=== PATIENT | female | born 1975 | race Caucasian/White ===

== ENCOUNTER 2016-09-18 13:53 | Inpatient (IN) | payer BC, MEDICAID ==
[2016-09-18] VITALS (8 sets, daily range): BP systolic 117–143; BP diastolic 60–89; PULSE 78–117; RESP 16–32; TEMP 98.3–98.6; O2SAT 96–99
[~2016-09-18] VITALS: Ht 160 cm; Wt 56.3 kg
[~2016-09-18 13:53] MED LIST: AMBI10TA PO; CLON1TAB PO; FIORINAL2 PO; FOLI1 PO; MAGN400T PO; NEUR600T PO; PROP10TA26 PO; SERT100 PO; SUMA20I NASAL; TAB-TAB PO; ZOFR4TAB3 SL
[2016-09-18] MEDS ORDERED: SODIUM CHLOR 0.9% 1000 ML INJ 1,000 ML IV ONE ×2 (14:30→18:00)
[2016-09-18] MEDS ORDERED: SODIUM CHLORIDE 0.9% FLUSH 5 ML FLUSH IVF PRN (14:30)
--- NOTE | 2016-09-18 14:32 | PD ---
HPI Chief Complaint: OD/ Ingestion Time Seen by Provider: 14:13 Travel History International Travel<30 days: No Contact w/Intl Traveler<30days: No Traveled to known affect area: No History of Present Illness HPI The patient was seen and examined in the presence of the nurse. This patient was dropped off at the emergency room by family members. Going to try to track him down for further history. This patient cannot provide any history or review of systems. She reportedly took an intentional overdose. Reportedly drank rubbing alcohol and took benzodiazepines. Timing of the overdose is unclear. No injury or trauma. PFSH Past Medical History Bipolar Disorder: Yes Anxiety: Yes Cerebrovascular Accident: Yes GERD: Yes Headaches: Yes Kidney Stones: Yes Myocardial Infarction: Yes Seizures: Yes Past Surgical History Appendectomy: Yes Social History Alcohol Use: Yes Tobacco Use: No Substance Use: No Allergies-Medications (Allergen,Severity, Reaction): Coded Allergies: UNOBTAINABLE (Unverified , 09/18/16) Reported Meds & Prescriptions Reported Meds & Active Scripts Active Active Prescriptions or Reported Medications Unobtainable Review of Systems ROS Limitations: Clinical Condition, Intoxication, Altered Mental Status, Poor Historian Physical Exam Narrative GENERAL: Disheveled, obtunded patient . SKIN: Warm and dry. HEAD: Atraumatic. Normocephalic. EYES: Pupils equal and round. No scleral icterus. No injection or drainage. ENT: No nasal bleeding or discharge. Mucous membranes pink and moist. NECK: Trachea midline. No JVD. CARDIOVASCULAR: Regular rate and rhythm. No murmur appreciated. RESPIRATORY: No accessory muscle use. Clear to auscultation. Breath sounds equal bilaterally. GASTROINTESTINAL: Abdomen soft, non-tender, nondistended. Hepatic and splenic margins not palpable. MUSCULOSKELETAL: No obvious deformities. No clubbing. No cyanosis. No edema. NEUROLOGICAL: Disoriented and confused. Positive gag reflex. Seems to be controlling her airway. He pulls are round and reactive. Impossible to accurately gauge motor strength or sensation. She does not participate in the exam. She is nonverbal at this point. PSYCHIATRIC: Impossible to assess mood and affect; insight and judgment poor. Data Data Last Documented VS Vital Signs Date Time Temp Pulse Resp B/P Pulse Ox O2 Delivery O2 Flow Rate FiO2 09/18/16 15:13 111 17 133/76 96 Nasal Cannula 2 09/18/16 13:54 98.3 Orders Electrocardiogram (1/29/17 ) Alcohol (Ethanol) (09/18/16 14:21) Complete Blood Count With Diff (09/18/16 14:21) Comprehensive Metabolic Panel (09/18/16 14:21) Drug Screen, Random Urine (09/18/16 14:21) Salicylates (Aspirin) (09/18/16 14:21) Tylenol (Acetaminophen) (09/18/16 14:21) Arterial Blood Gas (Abg) (09/18/16 14:21) Iv Access Insert/Monitor (09/18/16 14:21) Ecg Monitoring (09/18/16 14:21) Oximetry (09/18/16 14:21) Urinary Catheter Insert/Apply (09/18/16 14:21) Sodium Chloride 0.9% Flush (Ns Flush) (09/18/16 14:30) Call Poison Control (09/18/16 14:21) Restraints Non-Violent CHRISTIN.Q3H (09/18/16 14:21) Sodium Chlor 0.9% 1000 Ml Inj (Ns 1000 M (09/18/16 14:30) Prothrombin Time / Inr (Pt) (09/18/16 14:36) Act Partial Throm Time (Ptt) (09/18/16 14:36) Lactic Acid (09/18/16 14:36) Beta Hydroxybutyrate (Acetone) (09/18/16 14:36) Osmolality,Serum (09/18/16 14:36) Lactic Acid (09/18/16 16:35) Admit Order (Ed Use Only) (09/18/16 16:43) Labs Laboratory Tests Test 09/18/16 09/18/16 14:44 14:46 Blood Gas Puncture Site RT RADIAL Blood Gas Patient Temperature 98.6 Blood Gas HCO3 25 mmol/L Blood Gas Base Excess 2.7 mmol/L Blood Gas Oxygen Saturation 92 % Arterial Blood pH 7.53 Arterial Blood Partial 30 mmHg Pressure CO2 Arterial Blood Partial 165 mmHG Pressure O2 Arterial Blood Oxygen Content 20.4 Vol % Arterial Blood 4.5 % Carboxyhemoglobin Arterial Blood Methemoglobin 2.2 % Blood Gas Hemoglobin 15.6 G/DL Oxygen Delivery Device NASAL CANNULA Blood Gas Liter Flow 2 L/M White Blood Count 17.2 TH/MM3 Red Blood Count 5.14 MIL/MM3 Hemoglobin 15.3 GM/DL Hematocrit 44.5 % Mean Corpuscular Volume 86.6 FL Mean Corpuscular Hemoglobin 29.9 PG Mean Corpuscular Hemoglobin 34.5 % Concent Red Cell Distribution Width 12.8 % Platelet Count 346 TH/MM3 Mean Platelet Volume 8.3 FL Neutrophils (%) (Auto) 69.1 % Lymphocytes (%) (Auto) 24.0 % Monocytes (%) (Auto) 5.3 % Eosinophils (%) (Auto) 0.8 % Basophils (%) (Auto) 0.8 % Neutrophils # (Auto) 11.9 TH/MM3 Lymphocytes # (Auto) 4.1 TH/MM3 Monocytes # (Auto) 0.9 TH/MM3 Eosinophils # (Auto) 0.1 TH/MM3 Basophils # (Auto) 0.1 TH/MM3 CBC Comment DIFF FINAL Differential Comment Prothrombin Time 13.3 SEC Prothromb Time International 1.2 RATIO Ratio Activated Partial 25.5 SEC Thromboplast Time Sodium Level 145 MEQ/L Potassium Level 2.7 MEQ/L Chloride Level 103 MEQ/L Carbon Dioxide Level 26.8 MEQ/L Anion Gap 15 MEQ/L Blood Urea Nitrogen 18 MG/DL Creatinine 0.80 MG/DL Estimat Glomerular Filtration 62 ML/MIN Rate Random Glucose 145 MG/DL Serum Osmolality 352 MOSM/KG Lactic Acid Level 7.1 mmol/L Calcium Level 7.9 MG/DL Total Bilirubin 0.4 MG/DL Aspartate Amino Transf 94 U/L (AST/SGOT) Alanine Aminotransferase 118 U/L (ALT/SGPT) Alkaline Phosphatase 100 U/L Total Protein 6.4 GM/DL Albumin 3.7 GM/DL Salicylates Level 2.7 MG/DL Urine Opiates Screen NEG Acetaminophen Level LESS THAN 2.0 MCG/ML Urine Barbiturates Screen POS Urine Amphetamines Screen NEG Urine Benzodiazepines Screen NEG Urine Cocaine Screen NEG Urine Cannabinoids Screen NEG Ethyl Alcohol Level 52 MG/DL B-Hydroxybutyrate 0.05 MMOL/L MDM Medical Decision Making Medical Screen Exam Complete: Yes Emergency Medical Condition: Yes Medical Record Reviewed: Yes Differential Diagnosis Overdose, cardiac arrhythmia, electrolyte abnormality Narrative Course I have reviewed the patient's electronic medical record. Patient came in under Garima Galeas but we have obtained her real name. I reviewed her last visit here which was approximately 9 months ago and she was diagnosed with drug-seeking behavior. Patient arrives looking critically ill. She is obtunded and tachycardic after intentional overdose Nurses calling poison control while I have initiated large scale workup IV placed 2 I gave her 1 L normal saline IV CBC shows leukocytosis of 17,000 Metabolic profile shows hypokalemia of 2.7. Sodium is normal and creatinine is normal. She has elevated serum osmolality of 352. Beta hydroxybutyrate is normal. LFTs are slightly elevated ABG shows pH of 7.53 with normal bicarbonate and decreased CO2 Toxicology screen is positive for barbiturate Alcohol level is 52 Tylenol is negative Aspirin is 2.7 which is low Extended cardiac monitoring reveals sinus tachycardia at 120 I reviewed her EKG which reveals sinus tachycardia Multiple reassessments have been done. Vazquez catheter placed and she is put out a liter of yellow urine She is still obtunded but I don't feel she requires airway placement I discussed the case in detail with the neurophysiology tech on-call. We reviewed all of the labs and vitals and situation and I receive the recommendations. They did suggest intensive care monitoring given the mental status alteration as well as significant monitoring that will be needed. Repeat labs will be needed around 8 PM including alcohol and metabolic studies. A lot of this is supportive care as there is no specific antidote I placed a call to the cnc mechanic to discuss the case Critical Care Narrative Aggregate critical care time was 82 minutes. Time to perform other separately billable procedures was not included in the critical care time. My time did not include minutes spent treating any other patients simultaneously or on activities that did not directly contribute to the patient's treatment. The services I provided to this patient were to treat and/or prevent clinically significant deterioration that could result in: Cardiopulmonary arrest, cardiac arrhythmia, hypoxic brain injury I provided critical care services requiring my management, as noted below: Chart data review, documentation time, medication orders and management, vital sign assessments/reviewing monitor data, ordering and reviewing lab tests, ordering and interpreting/reviewing x-rays and diagnostic studies, care of the patient and discussion of the patient with the admitting physicians. Diagnosis Primary Impression: Acute metabolic encephalopathy Additional Impression: Toxic effect of rubbing alcohol Qualified Code: T51.2X2A - Toxic effect of rubbing alcohol, intentional self- harm, initial encounter Admitting Information Admitting Physician Requests: Admit Scripts Unable to Obtain Active Prescriptions or Reported Meds Isreal Rios MD Sep 18, 2016 14:32
[2016-09-18 14:55] LABS: BLOOD GAS BASE EXCESS 2.7 mmol/L (-2-2); BLOOD GAS CARBOXYHEMOGLOBIN 4.5 % (0-4); BLOOD GAS HCO3 25 mmol/L (22-26); BLOOD GAS METHEMOGLOBIN 2.2 % (0-2); BLOOD GAS O2 HGB SATURATION 92 % (90-100); BLOOD GAS OXYGEN CONTENT 20.4 Vol % (12.0-20.0); BLOOD GAS PCO2 30 mmHg (38-42); BLOOD GAS PO2 165 mmHG (61-120); BLOOD GAS TOTAL HGB 15.6 G/DL (12.0-16.0); CRITICAL VALUE YES; DRAW SITE RT RADIAL; LITER FLOW 2 L/M; NUMBER OF ARTERIAL PUNCTURES 1; OXYGEN DEVICE NASAL CANNULA; STAT YES; TEMP CORR TO 98.6
[2016-09-18 15:12] LABS: AUTOMATED NEUTROPHIL # 11.9 TH/MM3 (1.8-7.7); BASOPHIL # 0.1 TH/MM3 (0-0.2); BASOPHIL % 0.8 % (0.0-2.0); EOSINOPHIL # 0.1 TH/MM3 (0-0.4); EOSINOPHIL % 0.8 % (0.0-4.0); HEMATOCRIT 44.5 % (35.0-46.0); HEMO FLAGS DIFF FINAL; LYMPHOCYTE # 4.1 TH/MM3 (1.0-4.8); MEAN CELL VOLUME 86.6 FL (80.0-100.0); MEAN CORPUSCULAR HEMOGLOBIN 29.9 PG (27.0-34.0); MEAN CORPUSCULAR HGB CONC 34.5 % (32.0-36.0); MONO % 5.3 % (0.0-8.0); NEUT % 69.1 % (16.0-70.0); PLATELET COUNT 346 TH/MM3 (150-450); RED BLOOD COUNT 5.14 MIL/MM3 (4.00-5.30); RED CELL DISTRIBUTION WIDTH 12.8 % (11.6-17.2); WHITE BLOOD COUNT 17.2 TH/MM3 (4.0-11.0)
[2016-09-18 15:18] LABS: AMPHETAMINE, URINE NEG (NEG); BARBITURATES, URINE POS (NEG); COCAINE, URINE NEG (NEG)
[2016-09-18 15:21] LABS: APTT (PATIENT) 25.5 SEC (24.3-30.1); INTERNATIONAL NORMALIZED RATIO 1.2 RATIO; PROTHROMBIN TIME - PATIENT 13.3 SEC (9.8-11.6)
[2016-09-18 15:37] LABS: ALT (GPT) 118 U/L (10-53); ANION GAP 15 MEQ/L (5-15); AST (GOT) 94 U/L (15-37); BICARBONATE 26.8 MEQ/L (21.0-32.0); BLOOD UREA NITROGEN 18 MG/DL (7-18); CHLORIDE 103 MEQ/L (98-107); GLOMERULAR FILTRATION RATE 62 ML/MIN (>89); SODIUM (NA) 145 MEQ/L (136-145)
[2016-09-18 15:41] LABS: POTASSIUM 2.7 MEQ/L (3.5-5.1)
[2016-09-18 15:42] LABS: ACETAMINOPHEN LESS THAN 2.0 MCG/ML (10.0-30.0); ALKALINE PHOSPHATASE 100 U/L (45-117); TOTAL BILIRUBIN ADULT 0.4 MG/DL (0.2-1.0)
[2016-09-18] MEDS ORDERED: SODIUM PHOSPHATE INJ 30 MMOL in SODIUM CHLOR 0.9% 250 ML INJ 240 ML IV PRN (17:15)
[2016-09-18] MEDS ORDERED: POTASSIUM CL 40 MEQ/30 ML LIQ UDC PO/TUBE PRN ×2 (17:15)
[2016-09-18] MEDS ORDERED: MAGNESIUM SULFATE INJ 4 GM in SODIUM CHLORIDE 0.9% INJ 92 ML IV PRN (17:15)
[2016-09-18] MEDS ORDERED: POTASSIUM CHLOR 20 MEQ PREMIX 100 ML IV PRN (17:15)
[2016-09-18] MEDS ORDERED: POTASSIUM PHOSPHATE MONOBASIC 500 MG TAB PO PRN (17:15)
[2016-09-18] MEDS ORDERED: POTASSIUM PHOSPHATE MONOBASIC 500 MG TAB PO/TUBE PRN (17:15)
[2016-09-18] MEDS ORDERED: MAGNESIUM SULFATE INJ 2 GM in SODIUM CHLORIDE 0.9% INJ 96 ML IV PRN (17:15)
[2016-09-18] MEDS ORDERED: MAGNESIUM OXIDE 400 MG TAB PO PRN (17:15)
[2016-09-18] MEDS ORDERED: POTASSIUM PHOSPHATE INJ 30 MMOL in SODIUM CHLOR 0.9% 250 ML INJ 250 ML IV PRN (17:15)
[2016-09-18] MEDS ORDERED: POTASSIUM CHLOR 40 MEQ PREMIX 100 ML IV PRN ×2 (17:15)
--- NOTE | 2016-09-18 17:23 | HHI.HP ---
HPI Service Critical Care Medicine Primary Care Physician Unknown Admission Diagnosis intentional OD,BA,metabolic encephalopathy Diagnosis: Travel History International Travel<30 Days: No Contact w/Intl Traveler <30 Da: No Traveled to Known Affected Are: No History of Present Illness 40-year-old female who came in under the name Garima Guan whose name is reportedly Alis Stewart. She has PMH of migraine headaches, alcohol abuse, alcoholic hepatitis. She presents to [facility] [place] after her states she has had decreased level of consciousness for 5 days after she has been self- medicating with Fiorcet, klonopin, suboxone, EtOH and isopropyl alcohol. She reportedly had pain after a tooth was pulled last or MonSeptember 13 and she was trying to mask the pain. She has been drinking a fifth of vodka daily for 3 days. Last night and today she was drinking unknown quantity of isopropyl alcohol (less than 1 bottle). No ingestion of other toxic alcohols per report. Anion gap is 15 with lactic acid of 7.1. Osmolar gap is 33 with EtOH level 52. UDS positive for barbituates c/w known ingestion of fiorcet. APAP /salicylate negative. She was placed under [place] Act per ED physician. Case was discussed by rn maternal child who recommended admission to ICU for airway monitoring. She is complaining of dry mouth and epigastric discomfort. No nausea. Fell and hit her lip on the dresser couple days ago. Past Family Social History Allergies: Coded Allergies: UNOBTAINABLE (Unverified , 09/18/16) Past Medical History Migraine headaches Polysubstance abuse Tobacco abuse alcohol abuse Past Surgical History Appendectomy Breast augmentation Reported Medications Klonopin 2 mg by mouth 3 times a day Suboxone Fioricet Family History No significant family medical history Social History She has a history of alcohol dependence. Reportedly her last alcohol use was in May 2016 prior to her most recent binge drinking. She smokes a pack of cigarettes per day. She abuses benzodiazepines, opiates Reported no history of IV drug use She is She is unemployed Physical Exam Vital Signs Vital Signs Date Time Temp Pulse Resp B/P Pulse Ox O2 Delivery O2 Flow Rate FiO2 09/18/16 17:00 117 16 137/83 98 Room Air 09/18/16 15:13 111 17 133/76 96 Nasal Cannula 2 09/18/16 14:55 117 28 123/79 99 Nasal Cannula 2 09/18/16 13:54 98.3 78 32 140/89 97 Physical Exam GENERAL: Well-developed disheveled female patient who is laying in ED [facility] in 4. soft restraints. SKIN: Warm and dry. HEAD: Atraumatic. Normocephalic. EYES: Pupils are 3 mm reactive bilaterally. No scleral icterus. No injection or drainage. ENT: No nasal bleeding or discharge. Mucous membranes very dry. There is thrush in the posterior oropharynx. Old appearing healing abrasion left upper lip. NECK: Trachea midline. No JVD. CARDIOVASCULAR: Tachycardic, regular, sinus tach 110s on the monitor.. No murmurs rubs or gallops. RESPIRATORY: No accessory muscle use. Clear to auscultation. On room air GASTROINTESTINAL: Abdomen soft, +epigastric tenderness without rebound or guarding. Bowel sounds present. : bleeding at urethral meatus where she pulled out swan MUSCULOSKELETAL: Extremities without clubbing, cyanosis, or edema. No obvious deformities. NEUROLOGICAL: Awake answers questions and is oriented to hospital, self, year. Moves all extremities spontaneously and to commands. She is tremulous Laboratory Laboratory Tests Test 09/18/16 09/18/16 09/18/16 14:44 14:46 16:40 Blood Gas Puncture Site RT RADIAL Blood Gas Patient Temperature 98.6 Blood Gas HCO3 25 Blood Gas Base Excess 2.7 Blood Gas Oxygen Saturation 92 Arterial Blood pH 7.53 Arterial Blood Partial 30 Pressure CO2 Arterial Blood Partial 165 Pressure O2 Arterial Blood Oxygen Content 20.4 Arterial Blood 4.5 Carboxyhemoglobin Arterial Blood Methemoglobin 2.2 Blood Gas Hemoglobin 15.6 Oxygen Delivery Device NASAL CANNULA Blood Gas Liter Flow 2 White Blood Count 17.2 Red Blood Count 5.14 Hemoglobin 15.3 Hematocrit 44.5 Mean Corpuscular Volume 86.6 Mean Corpuscular Hemoglobin 29.9 Mean Corpuscular Hemoglobin 34.5 Concent Red Cell Distribution Width 12.8 Platelet Count 346 Mean Platelet Volume 8.3 Neutrophils (%) (Auto) 69.1 Lymphocytes (%) (Auto) 24.0 Monocytes (%) (Auto) 5.3 Eosinophils (%) (Auto) 0.8 Basophils (%) (Auto) 0.8 Neutrophils # (Auto) 11.9 Lymphocytes # (Auto) 4.1 Monocytes # (Auto) 0.9 Eosinophils # (Auto) 0.1 Basophils # (Auto) 0.1 CBC Comment DIFF FINAL Differential Comment Prothrombin Time 13.3 Prothromb Time International 1.2 Ratio Activated Partial 25.5 Thromboplast Time Sodium Level 145 Potassium Level 2.7 Chloride Level 103 Carbon Dioxide Level 26.8 Anion Gap 15 Blood Urea Nitrogen 18 Creatinine 0.80 Estimat Glomerular Filtration 62 Rate Random Glucose 145 Serum Osmolality 352 Lactic Acid Level 7.1 6.7 Calcium Level 7.9 Total Bilirubin 0.4 Aspartate Amino Transf 94 (AST/SGOT) Alanine Aminotransferase 118 (ALT/SGPT) Alkaline Phosphatase 100 Total Protein 6.4 Albumin 3.7 Salicylates Level 2.7 Urine Opiates Screen NEG Acetaminophen Level LESS THAN 2.0 Urine Barbiturates Screen POS Urine Amphetamines Screen NEG Urine Benzodiazepines Screen NEG Urine Cocaine Screen NEG Urine Cannabinoids Screen NEG Ethyl Alcohol Level 52 B-Hydroxybutyrate 0.05 Result Diagram: 09/18/16 1446 09/18/166 Assessment and Plan Problem List: (1) Toxic effect of rubbing alcohol ICD Code: T51.2X1A Status: Acute (2) Acute metabolic encephalopathy ICD Code: G93.41 Status: Acute (3) Hypokalemia ICD Code: E87.6 Status: Acute (4) Thrush ICD Code: B37.0 Status: Acute (5) Anxiety ICD Code: F41.9 Status: Acute (6) ETOH abuse ICD Code: F10.10 Status: Chronic (7) Transaminitis ICD Code: R74.0 Status: Acute (8) Lactic acidemia ICD Code: E87.2 Status: Acute (9) Polysubstance abuse ICD Code: F19.10 Status: Chronic (10) Tobacco abuse ICD Code: Z72.0 Status: Chronic (11) Leukocytosis ICD Code: D72.829 Status: Acute Assessment and Plan NEURO: Acute toxic metabolic encephalopathy Acute ethyl alcohol ingestion Acute isopropyl alcohol ingestion Polysubstance abuse (benzodiazepines, Fioricet) Alcohol dependence Poison control was contacted by the emergency department and ED physician discussed with rn maternal child who recommended ICU on monitoring overnight for airway protection. She is currently protecting her airway. Follow-up CT brain Check ammonia level At risk for benzo withdrawal. Continue klonopin 1 mg po tid. Ativan prn per CIWA protocol. Thiamine/MVI/folic acid supplementation PSYCH: Givens act instituted per ED. Will need psych consult in morning. RESP: Tobacco abuse She is currently protecting her airway. On room air CV: Monitor hemodynamics. EKG was sinus tachycardia. Normal QRS and QTc intervals. GI: Epigastric pain Mild transaminase elevation Likely has gastritis secondary to ethyl alcohol and isopropyl alcohol ingestion. Pancreatitis also a consideration, Will check lipase. Protonix as per below Follow-up CMP FEN/RENAL: Lactic acidemia, likely secondary to dehydration. Acute dehydration Serum osmolar gap Hypokalemia Mild carboxyhemoglobinemia consistent with reported history of smoking Labs are consistent with reported ingestion of isopropyl alcohol with concomitant EtOH. There is serum osmolar gap of 33 without anion-gap. Betahydroxybutarate is normal which is expected as acetone is the primary ketone produced during isopropyl alcohol metabolism. Treatment is supportive. She is clinically dehydrated. Will check CPK. Was bolused 1 L NS in the ED. Will bolus additional [address] on NS with 20 kcl/L @ 125/hr. Replace potassium with 40 mEq by mouth now and 40 mEq IV. Further replacement per ICU electrolyte replacement protocol. Check magnesium. Follow-up BMP in a.m. Following serial lactic acid, downtrendign. : Hematuria, secondary to trauma from patient self-removal of Swan Will monitor for evidence of urinary obstruction and bladder scan if needed. If she is having retention of >250 and unable to void will have RN attempt gentle swan placement x1, if unable due to trauma may need urology to place. Obtain POC ED test. ID: Leukocytosis Thrush Nystatin swish and swallow Afebrile Follow-up CBC HEME: Monitor CBC ENDO: Acute mild stress hyperglycemia Follow-up glucose on a.m. BMP. PROPH: SCDs for DVT prophylaxis. Hold off on pharmacologic DVT prophylaxis until CT brain has resulted given history of fall. Protonix 40 g IV daily for stress ulcer prophylaxis. ACCESS: Peripheral IV providing adequate access at this time updated at bedside. Discussed with ED physician. Admit to ICU overnight. She is currently protecting airway. She will be managed by project officer overnight. Hospitalist to assume care 09/19. CCT 45 minutes exclusive of separately billable procedures. Problem Qualifiers (1) Toxic effect of rubbing alcohol: Lesly Davison MD Sep 18, 2016 17:23
[2016-09-18] MEDS ORDERED: CHLORHEXIDINE GLUCONATE 2 % 1 PACK (2 CLOTHS) TOP PRN (17:30)
[2016-09-18] MEDS ORDERED: SODIUM CHLORIDE 0.9% FLUSH 5 ML FLUSH IV FLUSH PRN ×2 (17:30→17:45)
[2016-09-18] MEDS ORDERED: MISCELLANEOUS NURSING INFORMATION XX SCH (17:30)
[2016-09-18] MEDS ORDERED: RESP: ALBUTEROL 2.5 MG/3 ML NEB (PRN) INH (17:30)
[2016-09-18 17:38] LABS: MAGNESIUM 2.3 MG/DL (1.5-2.5)
[2016-09-18] MEDS ORDERED: FLUMAZENIL 0.5 MG/5 ML VIAL IV PUSH PRN (17:45)
[2016-09-18] MEDS ORDERED: LORazepam 2 MG/ML VIAL IV PUSH PRN ×3 (17:45)
[2016-09-18] MEDS ORDERED: LORazepam 2 MG TAB PO PRN (17:45)
[2016-09-18] MEDS ORDERED: LORazepam 1 MG TAB PO PRN (17:45)
[2016-09-18] MEDS: NS + KCL 20 MEQ INJ 1,000 ML IV SCH (17:46)
--- NOTE | 2016-09-18 17:57 | EKG ---
Date Performed: 09/18/2016 Time Performed: 13:59:35 PTAGE: 89 years EKG: SINUS TACHYCARDIA LEFT AXIS DEVIATION NONSPECIFIC LATERAL ST/T ABNORMALITY ABNORMAL ECG NO PREVIOUS TRACING DOCTOR: Teodoro Davison Interpretating Date/Time 09/18/2016 17:56:28
[2016-09-18 17:58] LABS: BLOOD, URINE NEG (NEG); GLUCOSE,URINE NEG (NEG); KETONE, URINE NEG (NEG); NITRITE,URINE NEG (NEG); SQUAMOUS EPITHELIAL CELL URINE 2 /hpf (0-5); URINE COLOR YELLOW (YELLW/STRAW)
[2016-09-18] MEDS: NYSTATIN SUSP 500,000 U/5 ML CUP SWISH-SWAL SCH ×2 (18:00→21:00)
[2016-09-18] MEDS ORDERED: POTASSIUM CHLORIDE 20 MEQ CONTROLLED RELEASE TAB PO ONE (18:00)
[2016-09-18] MEDS: FOLIC ACID 1 MG TAB PO SCH (18:22)
[2016-09-18] MEDS: POTASSIUM CHLOR 20 MEQ PREMIX 100 ML IV SCH ×2 (18:23→21:43)
[2016-09-18] MEDS: THIAMINE INJ 100 MG in SODIUM CHLORIDE 0.9% INJ 100 ML IV SCH (18:23)
--- NOTE | 2016-09-18 18:54 | RADRPT ---
EXAM DATE/TIME: 09/18/2016 18:36 [facility] COMPARISON: No previous studies available for comparison. INDICATIONS : Altered mental status. RADIATION DOSE: 56.35 CTDIvol (mGy) MEDICAL HISTORY : Cerebrovascular disease. Seizures. SURGICAL HISTORY : None. ENCOUNTER: Initial ACUITY: 1 day PAIN SCALE: 8/10 LOCATION: cranial TECHNIQUE: Multiple contiguous axial images were obtained of the head. Using automated exposure control and adj ustment of the mA and/or kV according to patient size, radiation dose was kept as low as reasonably a chievable to obtain optimal diagnostic quality images. FINDINGS: Mild motion degradation of the images. The patient's head is canted in the gantry. CEREBRUM: The ventricles are normal in size and symmetric. No evidence of midline shift, mass lesion, hemorrha ge or acute infarction. No extra-axial fluid collections are seen. POSTERIOR FOSSA: The cerebellum and brainstem are intact. The 4th ventricle is midline. The cerebellopontine angle i s unremarkable. EXTRACRANIAL: The visualized portion of the orbits is intact. SKULL: The calvaria is intact. No evidence of skull fracture. CONCLUSION: Negative noncontrast CT the brain. Stefano Waite MD on September 18, 2016 at 18:51 Board Certified Radiologist. This report was verified electronically.
[2016-09-18] MEDS: SODIUM CHLORIDE 0.9% FLUSH 5 ML FLUSH IV FLUSH SCH ×2 (21:00→21:16)
[2016-09-18] MEDS: clonazePAM 1 MG TAB PO SCH (23:10)
[2016-09-18] MEDS: ONDANSETRON HCL 4 MG/2 ML VIAL IV PRN (23:10)
[2016-09-19] VITALS (13 sets, daily range): BP systolic 113–123; BP diastolic 61–78; PULSE 82–129; RESP 16–20; TEMP 99.4; O2SAT 96–98
[2016-09-19] MEDS: LORazepam 2 MG/ML VIAL IV PUSH PRN ×3 (01:00→21:19)
[2016-09-19] MEDS: NS + KCL 20 MEQ INJ 1,000 ML IV SCH ×3 (03:22→20:11)
[2016-09-19] MEDS: CHLORHEXIDINE GLUCONATE 2 % 1 PACK (2 CLOTHS) TOP SCH ×2 (04:00→23:39)
[2016-09-19] MEDS: ONDANSETRON HCL 4 MG/2 ML VIAL IV PRN ×3 (04:34→20:12)
[2016-09-19 05:05] LABS: AUTOMATED NEUTROPHIL # 19.1 TH/MM3 (1.8-7.7); BASOPHIL # 0.2 TH/MM3 (0-0.2); BASOPHIL % 0.7 % (0.0-2.0); EOSINOPHIL % 0.2 % (0.0-4.0); HEMATOCRIT 35.5 % (35.0-46.0); HEMO FLAGS DIFF FINAL; LYMPH % 9.7 % (9.0-44.0); LYMPHOCYTE # 2.2 TH/MM3 (1.0-4.8); MEAN CELL VOLUME 86.8 FL (80.0-100.0); MEAN CORPUSCULAR HGB CONC 34.6 % (32.0-36.0); MONO % 3.8 % (0.0-8.0); NEUT % 85.6 % (16.0-70.0); PLATELET COUNT 217 TH/MM3 (150-450); RED BLOOD COUNT 4.09 MIL/MM3 (4.00-5.30); RED CELL DISTRIBUTION WIDTH 12.6 % (11.6-17.2); WHITE BLOOD COUNT 22.3 TH/MM3 (4.0-11.0)
[2016-09-19 06:00] LABS: BICARBONATE 21.4 MEQ/L (21.0-32.0); TOTAL BILIRUBIN ADULT 0.8 MG/DL (0.2-1.0)
[2016-09-19 06:14] LABS: CALCIUM-PROTEIN CORRECTED 7.4 MG/DL (8.5-10.1); POTASSIUM 2.7 MEQ/L (3.5-5.1)
[2016-09-19] MEDS: clonazePAM 1 MG TAB PO SCH ×3 (06:44→20:14)
[2016-09-19] MEDS ORDERED: CALCIUM GLUCONATE 10% 1 GM/10 ML VIAL IV PUSH ONE (06:45)
[2016-09-19] MEDS ORDERED: CALCIUM GLUCONATE INJ 1 GM in SODIUM CHLORIDE 0.9% INJ 100 ML IV ONE (08:00)
[2016-09-19] MEDS: PANTOPRAZOLE SODIUM 40 MG VIAL IV SCH (09:51)
[2016-09-19] MEDS: THIAMINE INJ 100 MG in SODIUM CHLORIDE 0.9% INJ 100 ML IV SCH (09:52)
[2016-09-19] MEDS: SODIUM CHLORIDE 0.9% FLUSH 5 ML FLUSH IV FLUSH SCH ×4 (09:52→20:14)
[2016-09-19] MEDS: MULTIVITAMIN TAB PO SCH (14:17)
[2016-09-19] MEDS: FOLIC ACID 1 MG TAB PO SCH (14:17)
--- NOTE | 2016-09-19 14:32 | HHI.PR ---
Subjective Remarks patient c/o diarrhea and abdominal pain also feels nauseous patient on soft restraints, as per RN patient agitated and pulling swan catheter Objective Vitals Vital Signs Date Time Temp Pulse Resp B/P Pulse Ox O2 Delivery O2 Flow Rate FiO2 09/19/16 07:34 91 20 119/67 98 09/19/16 06:00 106 16 114/65 96 Room Air 09/19/16 05:00 101 16 113/64 96 Room Air 09/19/16 04:00 97 16 115/62 96 Room Air 09/19/16 03:00 105 16 116/61 96 Room Air 09/19/16 02:00 113 16 118/72 96 Room Air 09/19/16 01:00 107 16 123/63 96 Room Air 09/19/16 00:00 129 16 122/70 97 Room Air 09/18/16 23:00 117 16 123/66 98 Room Air 09/18/16 22:00 108 16 119/60 98 Room Air 09/18/16 21:00 98.6 112 18 117/74 97 Room Air 09/18/16 18:00 106 18 143/77 98 Room Air 09/18/16 17:00 117 16 137/83 98 Room Air 09/18/16 15:13 96 Nasal Cannula 2.00 09/18/16 15:13 111 17 133/76 96 Nasal Cannula 2 09/18/16 14:55 117 28 123/79 99 Nasal Cannula 2 I/O 09/18/16 09/18/16 09/18/16 09/19/16 09/19/16 09/19/16 07:00 15:00 23:00 07:00 15:00 23:00 Output Total 1100 ml Balance -1100 ml Output Urine Total 1100 ml Bladder Scan Volume Amount 359 ml # Bowel Movements 2 Result Diagram: 09/19/16 0439 09/19/16 0448 Imaging Last Impressions Head CT 09/18/16 0000 Signed Impressions: Service Date/Time: Sunday, September 18, 2016 18:36 - CONCLUSION: Negative noncontrast CT the brain. Stefano Waite MD Objective Remarks GENERAL: Well-developed disheveled female patient who is laying in ED gurney in 4. soft restraints. SKIN: Warm and dry. HEAD: Atraumatic. Normocephalic. EYES: Pupils are 3 mm reactive bilaterally. No scleral icterus. No injection or drainage. ENT: No nasal bleeding or discharge. Mucous membranes very dry. There is thrush in the posterior oropharynx. Old appearing healing abrasion left upper lip. NECK: Trachea midline. No JVD. CARDIOVASCULAR: Tachycardic, regular, sinus tach 110s on the monitor.. No murmurs rubs or gallops. RESPIRATORY: No accessory muscle use. Clear to auscultation. On room air GASTROINTESTINAL: Abdomen soft, +difuse abdominal pain but mostly epigastric. Bowel sounds hyperactive : bleeding at urethral meatus where she pulled out swan MUSCULOSKELETAL: Extremities without clubbing, cyanosis, or edema. No obvious deformities. NEUROLOGICAL: Awake answers questions and is oriented to hospital, self, year. Moves all extremities spontaneously and to commands. She is tremulous Medications and IVs Current Medications Medications (Trade) Dose Ordered Sig/Amos Route Start Time Stop Time Status Last Admin Potassium Chloride 100 ml @ 50 mls/hr Q2H PRN IV 09/18/16 17:15 09/19/16 06:50 (KCl 20 Meq Premix Inj) 100 ml @ 50 mls/hr Q2H PRN IV 09/18/16 17:15 Potassium Chloride 40 meq 40 meq UNSCH PRN PO/TUBE 09/18/16 17:15 Potassium Chloride 100 ml @ 25 mls/hr UNSCH PRN IV 09/18/16 17:15 Potassium Chloride 100 ml @ 50 mls/hr Q2H PRN IV 09/18/16 17:15 (Magnesium Sulfate Inj/NS Inj) 100 ml @ 50 mls/hr UNSCH PRN IV 09/18/16 17:15 Magnesium Oxide 800 mg 800 mg UNSCH PRN PO 09/18/16 17:15 (Magnesium Sulfate Inj/NS Inj) 100 ml @ 50 mls/hr UNSCH PRN IV 09/18/16 17:15 Potassium Phosphate 2000 mg 2,000 mg Q4H PRN PO 09/18/16 17:15 (Sodium Phosphate Inj/NS 250 ml Inj) 250 ml @ 42 mls/hr UNSCH PRN IV 09/18/16 17:15 (KCl 40 Meq/30 ml Liq) 40 meq UNSCH PRN PO/TUBE 09/18/16 17:15 Potassium Phosphate 2000 mg 2,000 mg UNSCH PRN PO/TUBE 09/18/16 17:15 Potassium Phosphate 30 mmol/ Sodium Chloride 260 ml @ 42 mls/hr UNSCH PRN IV 09/18/16 17:15 (NS + KCl 20 Meq Inj) 1,000 ml @ 125 mls/hr Q8H IV 09/18/16 17:23 09/19/16 13:04 (NS Flush) 2 ml UNSCH PRN IV FLUSH 09/18/16 17:30 (NS Flush) 2 ml BID IV FLUSH 09/18/16 21:00 09/19/16 09:52 (Tylenol) 650 mg Q6H PRN PO 09/18/16 17:30 (Protonix Inj) 40 mg DAILY IV 09/19/16 09:00 09/19/16 09:51 (Zofran Inj) 4 mg Q6H PRN IV 09/18/16 17:30 09/19/16 04:34 Miscellaneous Information 1 Q361D XX 09/18/16 17:30 (Chlorhexidine 2% Cloth) 3 pack Taper DAILY@04 TOP 09/19/16 04:00 09/15/17 03:59 Chlorhexidine Gluconate 3 pack 3 pack UNSCH PRN TOP 09/18/16 17:30 (Thiamine Inj/NS Inj) 101 ml @ 101 mls/hr DAILY IV 09/18/16 18:00 09/19/16 09:52 (Theragran) 1 tab DAILY PO 09/19/16 09:00 09/19/16 14:17 (Mycostatin Liq) 5 ml QID SWISH-SWAL 09/18/16 18:00 (KlonoPIN) 1 mg Q8HR PO 09/18/16 22:00 09/19/16 14:17 (NS Flush) 2 ml UNSCH PRN IV FLUSH 09/18/16 17:45 (NS Flush) 2 ml BID IV FLUSH 09/18/16 21:00 09/19/16 09:52 (Folate) 1 mg DAILY PO 09/18/16 17:45 09/23/16 17:44 09/19/16 14:17 (Ativan) 1 mg Q4H PRN PO 09/18/16 17:45 09/19/16 14:17 (Ativan Inj) 1 mg Q4H PRN IV PUSH 09/18/16 17:45 09/19/16 04:40 (Ativan) 2 mg Q2H PRN PO 09/18/16 17:45 (Ativan Inj) 2 mg Q2H PRN IV PUSH 09/18/16 17:45 (Ativan Inj) 2 mg Q1H PRN IV PUSH 09/18/16 17:45 (Ativan Inj) 2 mg Q15M PRN IV PUSH 09/18/16 17:45 Urinary Catheter: No Vascular Central Line Catheter: No A/P Problem List: (1) Encephalopathy acute ICD Code: G93.40 Status: Acute Plan: Patient presents with acute encephalopathy likely multifactorial from toxic and metabolic encephalopathy due to isopropyl alcohol intoxication and other medications like Fioricet, Klonopin, Suboxone. Encephalopathy has resolved by now. Continue IV fluids, continue to monitor neurological status (2) Toxic effect of rubbing alcohol ICD Code: T51.2X1A Status: Acute Plan: Patient states that she was drinking alcohol in order to try to control her withdrawal from Suboxone and that she ran out of money, that is why then she decided to drink isopropyl alcohol. Patient had anion gap metabolic acidosis which is likely due to lactic acidosis. Patient had an Esmarch of 33 without an anion gap. Beta hydroxybutyrate is normal which is expected as acetone is to primary ketone produced doing isopropyl alcohol metabolism. However patient now has an anion gap. Continue IV fluids and replace potassium. (3) Acute pancreatitis ICD Code: K85.90 Status: Acute Plan: Likely alcohol induced. Keep nothing by mouth for now, I will increase the rate of normal saline to 200 mL per hour. If abdominal pain is improved tomorrow then I will start on clear liquids. (4) Leukocytosis ICD Code: D72.829 Status: Acute Plan: Leukocytosis likely stress induced. There are no signs of fever. However the patient has diarrhea which could be caused by opiate withdrawal. (5) Diarrhea ICD Code: R19.7 Status: Acute Plan: Check his stool studies will do stool cultures and Gram stain. Keep hydration and a for sending them will consider IV antibiotics. (6) High anion gap metabolic acidosis ICD Code: E87.2 Status: Acute Plan: Likely due to lactic acidosis which has resolved. Continue to monitor BMP. (7) Isopropyl alcohol poisoning ICD Code: T51.2X1A Status: Acute Plan: As above. (8) Polysubstance abuse ICD Code: F19.10 Status: Chronic (9) Transaminitis ICD Code: R74.0 Status: Acute Plan: Likely due to alcohol ingestion. Check hepatitis profile if not previously done (10) ETOH abuse ICD Code: F10.10 Status: Chronic Plan: Advised against alcohol abuse. (11) Tobacco abuse ICD Code: Z72.0 Status: Chronic Plan: Vital to smoking cessation (12) Alcohol withdrawal ICD Code: F10.239 Status: Acute Plan: Continue CIWA protocol (13) Abdominal pain ICD Code: R10.9 Status: Acute Plan: check CT abdomen given that the patient has diarrhea. Continue Flexiseal for now for now.. (14) Hypokalemia due to inadequate potassium intake ICD Code: E87.6 Status: Acute Plan: Likely due to decreased oral intake. Continue to replete and monitor. (15) Hypocalcemia ICD Code: E83.51 Status: Acute Plan: Due to poor intake. Replace with IV calcium chloride continue to monitor BMP. Problem Qualifiers (1) Toxic effect of rubbing alcohol: (2) Acute pancreatitis: (3) Diarrhea: Qualified Code: R19.7 - Diarrhea, unspecified type (4) Abdominal pain: Qualified Code: R10.84 - Generalized abdominal pain Lee Rosario MD Sep 19, 2016 14:32
[2016-09-19] MEDS ORDERED: POTASSIUM CHLOR 20 MEQ PREMIX 100 ML IV SCH (15:00)
--- NOTE | 2016-09-19 15:26 | PD.CONS ---
Provisional Diagnosis Admission Date Sep 18, 2016 at 16:46 [place]. Alcohol-induced mood disorder History of Present Illness Service Psychiatry Consult Requested By Primary Care Physician Unknown HPI The patient is a 40-year-old woman, domiciled with her , unemployed, with psychiatric history of anxiety and depression, alcohol and opiate use disorder, 2 previous psychiatric hospitalizations, previous suicidal attempts, medical history of migraine, TBI, who came in under the name Garima Guan whose name is reportedly Alis Stewart. She presents to [facility] after her states she has had decreased level of consciousness for 5 days after she has been self-medicating with Fiorcet, klonopin, suboxone, EtOH and isopropyl alcohol. She reportedly had pain after a tooth was pulled last or MonSeptember 13 and she was trying to mask the pain. She has been drinking a fifth of vodka daily for 3 days. Last night and today she was drinking unknown quantity of isopropyl alcohol (less than 1 bottle). No ingestion of other toxic alcohols per report. On second evaluation today patient was found restraint in 4-point, but she was calm and cooperative, patient is states that she drank isopropyl alcohol, rubbing alcohol, because she was on pain and she did not have any of her medication. She says that she has been in Fioricet for a long time, but she didn't have any and she had a terrible headache and the only option that she had was taking up. She says that she did not take this alcohol with the intention to , she does not have any suicidal ideation, she denies depressive symptoms, she denies anxiety, she denies visual and auditory hallucinations. Her Ministerio Stewart, contacted by phone, confirmed that the patient did to alcohol with suicidal intention. He says that she was on pain and this was the reason she took alcohol. He feels safe taking the patient back home once discharged. Review of Systems Constitutional: DENIES: Diaphoretic episodes, Fatigue, Fever, Weight gain, Weight loss, Chills, Dizziness, Change in appetite, Night Sweats Eyes: DENIES: Blurred vision, Diplopia, Eye inflammation, Eye pain, Vision loss , Photosensitivity, Double Vision Ears, nose, mouth, throat: DENIES: Tinnitus, Hearing loss, Vertigo, Nasal discharge, Oral lesions, Throat pain, Hoarseness, Ear Pain, Running Nose, Epistaxis, Sinus Pain, Toothache, Odynophagia Respiratory: DENIES: Apneas, Cough, Snoring, Wheezing, Hemoptysis, Sputum production, Shortness of breath Cardiovascular: DENIES: Chest pain, Palpitations, Syncope, Dyspnea on Exertion , PND, Lower Extremity Edema, Orthopnea, Claudication Gastrointestinal: DENIES: Abdominal pain, Black stools, Bloody stools, Constipation, Diarrhea, Nausea, Vomiting, Difficulty Swallowing, Anorexia Musculoskeletal: DENIES: Joint pain, Muscle aches, Stiffness, Joint Swelling, Back pain, Neck pain Hematologic/lymphatic: DENIES: Bruising, Lymphadenopathy Immunologic/allergic: DENIES: Eczema, Urticaria Neurologic: DENIES: Abnormal gait, Headache, Localized weakness, Paresthesias, Seizures, Speech Problems, Tremor, Poor Balance Past Family Social History Coded Allergies: UNOBTAINABLE (Unverified , 09/18/16) Unable to Obtain Active Prescriptions or Reported Meds Current Medications Medications (Trade) Dose Ordered Sig/Amos Route Start Time Stop Time Status Last Admin Potassium Chloride 100 ml @ 50 mls/hr Q2H PRN IV 09/18/16 17:15 09/19/16 06:50 (KCl 20 Meq Premix Inj) 100 ml @ 50 mls/hr Q2H PRN IV 09/18/16 17:15 Potassium Chloride 40 meq 40 meq UNSCH PRN PO/TUBE 09/18/16 17:15 Potassium Chloride 100 ml @ 25 mls/hr UNSCH PRN IV 09/18/16 17:15 Potassium Chloride 100 ml @ 50 mls/hr Q2H PRN IV 09/18/16 17:15 (Magnesium Sulfate Inj/NS Inj) 100 ml @ 50 mls/hr UNSCH PRN IV 09/18/16 17:15 Magnesium Oxide 800 mg 800 mg UNSCH PRN PO 09/18/16 17:15 (Magnesium Sulfate Inj/NS Inj) 100 ml @ 50 mls/hr UNSCH PRN IV 09/18/16 17:15 Potassium Phosphate 2000 mg 2,000 mg Q4H PRN PO 09/18/16 17:15 (Sodium Phosphate Inj/NS 250 ml Inj) 250 ml @ 42 mls/hr UNSCH PRN IV 09/18/16 17:15 (KCl 40 Meq/30 ml Liq) 40 meq UNSCH PRN PO/TUBE 09/18/16 17:15 Potassium Phosphate 2000 mg 2,000 mg UNSCH PRN PO/TUBE 09/18/16 17:15 Potassium Phosphate 30 mmol/ Sodium Chloride 260 ml @ 42 mls/hr UNSCH PRN IV 09/18/16 17:15 (NS + KCl 20 Meq Inj) 1,000 ml @ 200 mls/hr Q5H IV 09/18/16 17:23 09/19/16 13:04 (NS Flush) 2 ml UNSCH PRN IV FLUSH 09/18/16 17:30 (NS Flush) 2 ml BID IV FLUSH 09/18/16 21:00 09/19/16 09:52 (Tylenol) 650 mg Q6H PRN PO 09/18/16 17:30 (Protonix Inj) 40 mg DAILY IV 09/19/16 09:00 09/19/16 09:51 (Zofran Inj) 4 mg Q6H PRN IV 09/18/16 17:30 09/19/16 14:40 Miscellaneous Information 1 Q361D XX 09/18/16 17:30 (Chlorhexidine 2% Cloth) 3 pack Taper DAILY@04 TOP 09/19/16 04:00 09/15/17 03:59 Chlorhexidine Gluconate 3 pack 3 pack UNSCH PRN TOP 09/18/16 17:30 (Thiamine Inj/NS Inj) 101 ml @ 101 mls/hr DAILY IV 09/18/16 18:00 09/19/16 09:52 (Theragran) 1 tab DAILY PO 09/19/16 09:00 09/19/16 14:17 (Mycostatin Liq) 5 ml QID SWISH-SWAL 09/18/16 18:00 (KlonoPIN) 1 mg Q8HR PO 09/18/16 22:00 09/19/16 14:17 (NS Flush) 2 ml UNSCH PRN IV FLUSH 09/18/16 17:45 (NS Flush) 2 ml BID IV FLUSH 09/18/16 21:00 09/19/16 09:52 (Folate) 1 mg DAILY PO 09/18/16 17:45 09/23/16 17:44 09/19/16 14:17 (Ativan) 1 mg Q4H PRN PO 09/18/16 17:45 09/19/16 14:17 (Ativan Inj) 1 mg Q4H PRN IV PUSH 09/18/16 17:45 09/19/16 04:40 (Ativan) 2 mg Q2H PRN PO 09/18/16 17:45 (Ativan Inj) 2 mg Q2H PRN IV PUSH 09/18/16 17:45 (Ativan Inj) 2 mg Q1H PRN IV PUSH 09/18/16 17:45 (Ativan Inj) 2 mg Q15M PRN IV PUSH 09/18/16 17:45 Potassium Chloride 30 meq 30 meq ONCE ONCE PO 09/19/16 16:00 09/19/16 16:01 Potassium Chloride 100 ml @ 50 mls/hr Q2H IV 09/19/16 15:00 09/19/16 18:59 Ciprofloxacin/ Dextrose 200 ml @ 200 mls/hr Q8H IV 09/19/16 16:00 (Flagyl 500 Mg Inj) 100 ml @ 100 mls/hr Q8H IV 09/19/16 15:00 Physical Exam Vital Signs Vital Signs Date Time Temp Pulse Resp B/P Pulse Ox O2 Delivery O2 Flow Rate FiO2 09/19/16 07:34 91 20 119/67 98 09/19/16 06:00 Room Air 09/18/16 21:00 98.6 09/18/16 15:13 2.00 Mental Status Examination Speech: Unremarkable Orientation: x3 Memory: Unremarkable Thought Process: Logical Thought Content: Unremarkable Hallucination Type: None Suicidal Ideation: No Previous Suicide Attempts: No Homicidal Ideation: No Previous Homicide Attempts: No Affect: Irritable Mood: Appropriate Motor Activity: Normal gait Assessment & Plan Problem List: (1) Alcohol abuse with alcohol-induced mood disorder Assessment & Plan: At the moment of this evaluation the patient does not present any acute, concerning symptomatology of depression, anxiety, yared or perceptual disturbances. She denies suicidal or homicidal ideation. She denies visual and auditory hallucinations. Recent intake of rubbing alcohol was not with suicidal intentions, the confirmed. This patient has a severe addiction problem, most probably she is addicted to Fioricet and benzodiazepines and since she hasn't be prescribed with his medication she took alcohol for the cravings and possible withdrawal syndrome. She does not meet criteria for second admission at this moment. Givens act will be lifted. Patient would benefit of being discharged to a detox/rehabilitation program. Support, motivation psycho education provided. ICD Code: F10.14 Assessment & Plan Estimated LOS: days Stevie Napier MD Sep 19, 2016 15:26
[2016-09-19] MEDS ORDERED: POTASSIUM CHLORIDE 10 MEQ CONTROLLED RELEASE TAB PO ONE (16:00)
--- NOTE | 2016-09-19 17:00 | RADRPT ---
EXAM DATE/TIME: 09/19/2016 15:46 [facility] COMPARISON: No previous studies available for comparison. INDICATIONS : Diarrhea; overdose. IV CONTRAST: 75 cc Omnipaque 350 (iohexol) IV ORAL CONTRAST: No oral contrast ingested. RADIATION DOSE: 9.96 CTDIvol (mGy) MEDICAL HISTORY : Non-responsive. SURGICAL HISTORY : Appendectomy. ENCOUNTER: Initial ACUITY: 1 day PAIN SCALE: Non-responsive LOCATION: Bilateral abdomen. TECHNIQUE: Volumetric scanning of the abdomen and pelvis was performed. Using automated exposure control and ad justment of the mA and/or kV according to patient size, radiation dose was kept as low as reasonably achievable to obtain optimal diagnostic quality images. FINDINGS: Lung bases suggest a 5 mm noncalcified nodules subpleural in the right lower lobe. Bilateral breast p rostheses in place intact. Bony structures are normal normal major retroperitoneal pelvic and inguina l femoral vascular structures. The liver reveals mild hepatomegaly and low density hepatic fatty meta morphosis. The gallbladder suggests mild thickening of the wall. There may be some inflammatory celis es in this region. Pancreas as visualized appears normal with normal bile ducts. The patient demonstr ates positive for age in the rectum and there is suggestion of sigmoid colon mid and distal circumfer ential thickening of the bowel wall and some mild inflammatory changes which could represent a coliti s. Vazquez catheter is in place in the urinary bladder. CONCLUSION: Findings suggesting some mild concentric thickening of the bowel wall mid and distal sigmoid colon mi ld inflammatory changes which could represent colitis. Questionable inflammatory change in the descen ding duodenum. Fatty metamorphosis of the liver. Questionable thicke sarah of the gallbladder wall and minimal pericholecystic inflammatory change. 5 mm subpleural nodule right lung base posteriorly l ower lobe. Bryant Snyder MD on September 19, 2016 at 16:53 Board Certified Radiologist. This report was verified electronically.
[2016-09-19] MEDS ORDERED: IOHEXOL 350 MG/ML 10 ML VIAL (for RAD DIAG) IV ONE (17:51)
[2016-09-19] MEDS: metroNIDAZOLE 500 MG INJ 100 ML IV SCH ×2 (18:14→21:19)
[2016-09-19] MEDS: ACETAMINOPHEN 325 MG TAB PO PRN (20:12)
[2016-09-19 20:40] LABS: ANION GAP 17 MEQ/L (5-15); BICARBONATE 18.5 MEQ/L (21.0-32.0); BLOOD UREA NITROGEN 4 MG/DL (7-18); CHLORIDE 106 MEQ/L (98-107); GLOMERULAR FILTRATION RATE 70 ML/MIN (>89); SODIUM (NA) 141 MEQ/L (136-145)
[2016-09-19 20:41] LABS: POTASSIUM 2.7 MEQ/L (3.5-5.1)
[2016-09-19 20:54] LABS: CALCIUM-PROTEIN CORRECTED 7.7 MG/DL (8.5-10.1)
--- NOTE | 2016-09-19 21:48 | RADRPT ---
EXAM DATE/TIME: 09/19/2016 20:49 [facility] COMPARISON: No previous studies available for comparison. INDICATIONS : Increased lab values. MEDICAL HISTORY : Renal calculi. Gastroesophageal reflux disease. Seizures. Cerebrovascular accident. Kidney stones. Bipolar disorder. Anxiety. SURGICAL HISTORY : Breast augmentation. Back surgery. ENCOUNTER: Initial ACUITY: 1 day PAIN SCORE: 0/10 LOCATION: Abdomen. MEASUREMENTS: LIVER: 15.8 cm length COMMON DUCT: 4 mm RIGHT KIDNEY: 12.1 x 5.0 x 4.7 cm SPLEEN: 9.2 cm length FINDINGS: LIVER: Normal echotexture without focal lesion or ductal dilatation. COMMON DUCT: No intraluminal mass or stone visualized. GALLBLADDER: Contains no stones, demonstrates no wall thickening or pericholecystic fluid. PANCREAS: The visualized portions are within normal limits. RIGHT KIDNEY: No hydronephrosis, stone or mass. SPLEEN: No focal lesion. CONCLUSION: Normal examination for a patient of this age. Blas Rutherford MD on September 19, 2016 at 21:46 Board Certified Radiologist. This report was verified electronically.
[2016-09-20] VITALS (7 sets, daily range): BP systolic 122–127; BP diastolic 72–94; PULSE 69–104; RESP 15–25; TEMP 98.5–99.1; O2SAT 90–100
[2016-09-20] MEDS: CIPROFLOXACIN 400 MG PREMIX 200 ML IV SCH ×3 (00:48→09:11)
[2016-09-20] MEDS: POTASSIUM CHLOR 20 MEQ PREMIX 100 ML IV PRN ×2 (00:48→04:24)
[2016-09-20] MEDS: NS + KCL 20 MEQ INJ 1,000 ML IV SCH ×2 (00:49→09:57)
[2016-09-20] MEDS: LORazepam 2 MG/ML VIAL IV PUSH PRN ×3 (00:52→09:46)
[2016-09-20] MEDS: metroNIDAZOLE 500 MG INJ 100 ML IV SCH (05:19)
[2016-09-20] MEDS: clonazePAM 1 MG TAB PO SCH (05:19)
[2016-09-20] MEDS: ONDANSETRON HCL 4 MG/2 ML VIAL IV PRN (08:05)
[2016-09-20] MEDS: SODIUM CHLORIDE 0.9% FLUSH 5 ML FLUSH IV FLUSH SCH ×2 (09:00)
[2016-09-20] MEDS: PANTOPRAZOLE SODIUM 40 MG VIAL IV SCH (09:11)
[2016-09-20] MEDS: NYSTATIN SUSP 500,000 U/5 ML CUP SWISH-SWAL SCH (09:35)
[2016-09-20] MEDS: MULTIVITAMIN TAB PO SCH (09:36)
[2016-09-20] MEDS: FOLIC ACID 1 MG TAB PO SCH (09:36)
[2016-09-20] MEDS: ACETAMINOPHEN 325 MG TAB PO PRN (09:37)
[2016-09-20 10:15] LABS: BICARBONATE 20.5 MEQ/L (21.0-32.0); CALCIUM-PROTEIN CORRECTED 7.9 MG/DL (8.5-10.1); MAGNESIUM 1.5 MG/DL (1.5-2.5); POTASSIUM 3.3 MEQ/L (3.5-5.1); TOTAL BILIRUBIN ADULT 0.5 MG/DL (0.2-1.0)
[2016-09-20 10:19] LABS: AUTOMATED NEUTROPHIL # 9.7 TH/MM3 (1.8-7.7); BASOPHIL # 0.1 TH/MM3 (0-0.2); BASOPHIL % 0.4 % (0.0-2.0); EOSINOPHIL # 0.3 TH/MM3 (0-0.4); EOSINOPHIL % 2.1 % (0.0-4.0); HEMATOCRIT 35.8 % (35.0-46.0); HEMO FLAGS DIFF FINAL; LYMPH % 16.8 % (9.0-44.0); LYMPHOCYTE # 2.2 TH/MM3 (1.0-4.8); MEAN CELL VOLUME 87.7 FL (80.0-100.0); MEAN CORPUSCULAR HEMOGLOBIN 29.9 PG (27.0-34.0); MEAN CORPUSCULAR HGB CONC 34.1 % (32.0-36.0); MONO % 4.6 % (0.0-8.0); NEUT % 76.1 % (16.0-70.0); PLATELET COUNT 162 TH/MM3 (150-450); RED BLOOD COUNT 4.09 MIL/MM3 (4.00-5.30); RED CELL DISTRIBUTION WIDTH 12.5 % (11.6-17.2); WHITE BLOOD COUNT 12.8 TH/MM3 (4.0-11.0)
[2016-09-20] MEDS ORDERED: POTASSIUM CHLORIDE 20 MEQ CONTROLLED RELEASE TAB PO ONE (10:30)
[2016-09-20] MEDS ORDERED: CALCIUM CHLORIDE INJ 2 GM in SODIUM CHLORIDE 0.9% INJ 100 ML IV ONE (12:00)
--- NOTE | 2016-09-20 12:16 | HHI.PR ---
Subjective Remarks patient more alert still having diarrhea denies fevers/chills denies nausea or vomiting Vital signs stable Calcium and potassium low wants to leave AMA Objective Vitals Vital Signs Date Time Temp Pulse Resp B/P Pulse Ox O2 Delivery O2 Flow Rate FiO2 09/20/16 10:37 15 09/20/16 10:00 83 09/20/16 08:00 69 09/20/16 08:00 98.6 69 15 122/78 97 09/20/16 06:00 76 09/20/16 04:00 98.5 104 18 124/94 90 09/20/16 04:00 104 09/20/16 02:00 77 09/20/16 00:00 99.1 82 25 127/83 99 09/20/16 00:00 82 09/19/16 22:00 89 09/19/16 20:00 86 09/19/16 19:46 99.4 86 16 121/74 98 09/19/16 16:15 82 16 117/74 98 I/O 09/19/16 09/19/16 09/19/16 09/20/16 09/20/16 09/20/16 07:00 15:00 23:00 07:00 15:00 23:00 Intake Total 3461 ml 1277 ml Output Total 1100 ml 950 ml 1700 ml Balance -1100 ml 2511 ml -423 ml Intake IV Total 3461 ml 1277 ml Output Urine Total 1100 ml 550 ml 1600 ml Stool Total 400 ml 100 ml Result Diagram: 09/20/16 0916 09/20/16 0916 Imaging Last Impressions Liver Ultrasound 09/19/16 0000 Signed Impressions: Service Date/Time: Monday, September 19, 2016 20:49 - CONCLUSION: Normal examination for a patient of this age. Blas Rutherford MD Abdomen/Pelvis CT 09/19/16 0000 Signed Impressions: Service Date/Time: Monday, September 19, 2016 15:46 - CONCLUSION: Findings suggesting some mild concentric thickening of the bowel wall mid and distal sigmoid colon mild inflammatory changes which could represent colitis. Questionable inflammatory change in the descending duodenum. Fatty metamorphosis of the liver. Questionable thickening of the gallbladder wall and minimal pericholecystic inflammatory change. 5 mm subpleural nodule right lung base posteriorly lower lobe. Bryant Snyder MD Head CT 09/18/16 0000 Signed Impressions: Service Date/Time: Sunday, September 18, 2016 18:36 - CONCLUSION: Negative noncontrast CT the brain. Stefano Waite MD Objective Remarks GENERAL: Well-developed disheveled female patient, nad. SKIN: Warm and dry. HEAD: Atraumatic. Normocephalic. EYES: Pupils are 3 mm reactive bilaterally. No scleral icterus. No injection or drainage. ENT: No nasal bleeding or discharge. Mucous membranes very dry. There is thrush in the posterior oropharynx. Old appearing healing abrasion left upper lip. NECK: Trachea midline. No JVD. CARDIOVASCULAR: Tachycardic, regular, sinus tach 110s on the monitor.. No murmurs rubs or gallops. RESPIRATORY: No accessory muscle use. Clear to auscultation. On room air GASTROINTESTINAL: Abdomen soft, non tender, non distended, [place] with diarrhea MUSCULOSKELETAL: Extremities without clubbing, cyanosis, or edema. No obvious deformities. NEUROLOGICAL: Awake, alert and oriented 3. Follows commands. Cranial nerves II through XII grossly intact. Medications and IVs Current Medications Medications (Trade) Dose Ordered Sig/Amos Route Start Time Stop Time Status Last Admin Potassium Chloride 100 ml @ 50 mls/hr Q2H PRN IV 09/18/16 17:15 09/19/16 06:50 (KCl 20 Meq Premix Inj) 100 ml @ 50 mls/hr Q2H PRN IV 09/18/16 17:15 09/20/16 04:24 Potassium Chloride 40 meq 40 meq UNSCH PRN PO/TUBE 09/18/16 17:15 Potassium Chloride 100 ml @ 25 mls/hr UNSCH PRN IV 09/18/16 17:15 Potassium Chloride 100 ml @ 50 mls/hr Q2H PRN IV 09/18/16 17:15 (Magnesium Sulfate Inj/NS Inj) 100 ml @ 50 mls/hr UNSCH PRN IV 09/18/16 17:15 Magnesium Oxide 800 mg 800 mg UNSCH PRN PO 09/18/16 17:15 (Magnesium Sulfate Inj/NS Inj) 100 ml @ 50 mls/hr UNSCH PRN IV 09/18/16 17:15 Potassium Phosphate 2000 mg 2,000 mg Q4H PRN PO 09/18/16 17:15 (Sodium Phosphate Inj/NS 250 ml Inj) 250 ml @ 42 mls/hr UNSCH PRN IV 09/18/16 17:15 (KCl 40 Meq/30 ml Liq) 40 meq UNSCH PRN PO/TUBE 09/18/16 17:15 Potassium Phosphate 2000 mg 2,000 mg UNSCH PRN PO/TUBE 09/18/16 17:15 Potassium Phosphate 30 mmol/ Sodium Chloride 260 ml @ 42 mls/hr UNSCH PRN IV 09/18/16 17:15 (NS + KCl 20 Meq Inj) 1,000 ml @ 200 mls/hr Q5H IV 09/18/16 17:23 09/20/16 09:57 (Tylenol) 650 mg Q6H PRN PO 09/18/16 17:30 09/20/16 09:37 (Protonix Inj) 40 mg DAILY IV 09/19/16 09:00 09/20/16 09:11 (Zofran Inj) 4 mg Q6H PRN IV 09/18/16 17:30 09/20/16 08:05 Miscellaneous Information 1 Q361D XX 09/18/16 17:30 (Chlorhexidine 2% Cloth) 3 pack Taper DAILY@04 TOP 09/19/16 04:00 09/15/17 03:59 09/19/16 23:39 Chlorhexidine Gluconate 3 pack 3 pack UNSCH PRN TOP 09/18/16 17:30 (Thiamine Inj/NS Inj) 101 ml @ 101 mls/hr DAILY IV 09/18/16 18:00 09/19/16 09:52 (Theragran) 1 tab DAILY PO 09/19/16 09:00 09/20/16 09:36 (Mycostatin Liq) 5 ml QID SWISH-SWAL 09/18/16 18:00 09/20/16 09:35 (KlonoPIN) 1 mg Q8HR PO 09/18/16 22:00 09/20/16 05:19 (NS Flush) 2 ml UNSCH PRN IV FLUSH 09/18/16 17:45 (NS Flush) 2 ml BID IV FLUSH 09/18/16 21:00 09/19/16 09:52 (Folate) 1 mg DAILY PO 09/18/16 17:45 09/23/16 17:44 09/20/16 09:36 (Ativan) 1 mg Q4H PRN PO 09/18/16 17:45 09/19/16 14:17 (Ativan Inj) 1 mg Q4H PRN IV PUSH 09/18/16 17:45 09/20/16 09:46 (Ativan) 2 mg Q2H PRN PO 09/18/16 17:45 (Ativan Inj) 2 mg Q2H PRN IV PUSH 09/18/16 17:45 09/19/16 18:47 (Ativan Inj) 2 mg Q1H PRN IV PUSH 09/18/16 17:45 Lorazepam 2 mg 2 mg Q15M PRN IV PUSH 09/18/16 17:45 Ciprofloxacin/ Dextrose 200 ml @ 200 mls/hr Q8H IV 09/19/16 16:00 09/20/16 09:11 Metronidazole 100 ml @ 100 mls/hr Q8H IV 09/19/16 15:00 09/20/16 05:19 (Calcium Chloride Inj/NS Inj) 120 ml @ 120 mls/hr ONCE ONCE IV 09/20/16 12:00 09/20/16 12:59 Urinary Catheter: Yes Assessment to: Remove A/P Problem List: (1) Encephalopathy acute ICD Code: G93.40 Status: Resolved (2) Toxic effect of rubbing alcohol ICD Code: T51.2X1A Status: Resolved (3) Acute pancreatitis ICD Code: K85.90 Status: Acute (4) Leukocytosis ICD Code: D72.829 Status: Acute (5) Diarrhea ICD Code: R19.7 Status: Acute (6) High anion gap metabolic acidosis ICD Code: E87.2 Status: Resolved (7) Isopropyl alcohol poisoning ICD Code: T51.2X1A Status: Resolved (8) Polysubstance abuse ICD Code: F19.10 Status: Chronic (9) Transaminitis ICD Code: R74.0 Status: Acute (10) ETOH abuse ICD Code: F10.10 Status: Chronic (11) Tobacco abuse ICD Code: Z72.0 Status: Chronic (12) Alcohol withdrawal ICD Code: F10.239 Status: Resolved (13) Abdominal pain ICD Code: R10.9 Status: Resolved (14) Hypokalemia due to inadequate potassium intake ICD Code: E87.6 Status: Acute (15) Hypocalcemia ICD Code: E83.51 Status: Acute Assessment and Plan (1) Encephalopathy acute Plan: Patient presents with acute encephalopathy likely multifactorial from toxic and metabolic encephalopathy due to isopropyl alcohol intoxication and other medications like Fioricet, Klonopin, Suboxone. Encephalopathy has resolved by now. Continue IV fluids, continue to monitor neurological status 09/20 discontinue IV fluids. (2) Toxic effect of rubbing alcohol Plan: Patient states that she was drinking alcohol in order to try to control her withdrawal from Suboxone and that she ran out of money, that is why then she decided to drink isopropyl alcohol. Patient had anion gap metabolic acidosis which is likely due to lactic acidosis. Patient had an Esmarch of 33 without an anion gap. Beta hydroxybutyrate is normal which is expected as acetone is to primary ketone produced doing isopropyl alcohol metabolism. However patient now has an anion gap. Continue IV fluids and replace potassium. 1 11/25/30 anion gap closed. (3) Acute pancreatitis Plan: Likely alcohol induced. Keep nothing by mouth for now, I will increase the rate of normal saline to 200 mL per hour. If abdominal pain is improved tomorrow then I will start on clear liquids. 09/20 abdominal pain resolved. Appetite is improving. Start on clear liquid diet and the plans as tolerated. (4) Leukocytosis Plan: Leukocytosis likely stress induced. There are no signs of fever. However the patient has diarrhea which could be caused by opiate withdrawal. (5) Diarrhea ICD Code: R19.7 Status: Acute Plan: Check his stool studies will do stool cultures and Gram stain. Keep hydration and a for sending them will consider IV antibiotics. 09/20/16 no enteric pathogens detected by PCR, no WBCs seen. Diarrhea likely not infectious. (6) High anion gap metabolic acidosis Plan: Likely due to lactic acidosis which has resolved. Continue to monitor BMP. 09/20/16 now resolved. (7) Isopropyl alcohol poisoning Plan: As above. (8) Polysubstance abuse Advised against drug use. (9) Transaminitis Plan: Likely due to alcohol ingestion. Transaminitis trending down. (10) ETOH abuse Plan: Advised against alcohol abuse. (11) Tobacco abuse Plan: Advised smoking cessation (12) Alcohol withdrawal Plan: Continue CIWA protocol. Much improved. (13) Abdominal pain Plan: check CT abdomen given that the patient has diarrhea. Continue Flexiseal for now for now.. (14) Hypokalemia due to inadequate potassium intake Plan: Likely due to decreased oral intake. Continue to replete and monitor. (15) Hypocalcemia Plan: Due to poor intake. Replace with IV calcium chloride continue to monitor BMP. Discharge Planning Objective transferred to the medical floor. Patient may be discharged in a.m. if diarrhea and electrolyte imbalance corrected. Problem Qualifiers (1) Toxic effect of rubbing alcohol: (2) Acute pancreatitis: (3) Diarrhea: Qualified Code: R19.7 - Diarrhea, unspecified type (4) Abdominal pain: Qualified Code: R10.84 - Generalized abdominal pain Lee Rosario MD Sep 20, 2016 12:16
== END 2016-09-20 12:50 | disposition left against medical advice (07) | DRG 917 ==
LOC: NEPE 13:53 → EDBD 16:46 → MERGE 16:46 → NEDA 16:46 → NEDH 21:24 → HIME 09-19 18:00
PROVIDERS: ADMIT Hospitalist; ATTEND Hospitalist
DX: T51.2X1A Toxic effect of 2-Propanol, accidental (unintentional), initial encounter (principal); G92 Toxic encephalopathy; K85.20 Alcohol induced acute pancreatitis without necrosis or infection; E87.2 Acidosis; E83.51 Hypocalcemia; F11.20 Opioid dependence, uncomplicated; F13.20 Sedative, hypnotic or anxiolytic dependence, uncomplicated; F10.24 Alcohol dependence with alcohol-induced mood disorder; F10.239 Alcohol dependence with withdrawal, unspecified; Z78.1 Physical restraint status; E86.0 Dehydration; E87.6 Hypokalemia; F41.9 Anxiety disorder, unspecified; R19.7 Diarrhea, unspecified; F31.9 Bipolar disorder, unspecified; K21.9 Gastro-esophageal reflux disease without esophagitis; R31.9 Hematuria, unspecified; I25.2 Old myocardial infarction; R73.09 Other abnormal glucose; F17.210 Nicotine dependence, cigarettes, uncomplicated; Y90.2 Blood alcohol level of 40-59 mg/100 ml; Z86.73 Personal history of transient ischemic attack (TIA), and cerebral infarction without residual deficits; Z91.5 Personal history of self-harm
CPT/HCPCS: 36600; 51702; 70450; 74177; 76705; 80048; 80053; 80307; 80320; 80329; 81001; 82010; 82140; 82550; 82805; 82948; 83605; 83690; 83735; 83930; 84100; 84155; 84703; 85025; 85610; 85730; 87205; 87506; 87641; 93005; 96360; 96361; 99292; C9113; G0480; J0610; J0744; J2060; J2405; J3411; J3480; J7030; Q9967

== ENCOUNTER 2016-12-26 11:00 | Inpatient (IN) | payer BC ==
[2016-12-26] VITALS (8 sets, daily range): BP systolic 101–162; BP diastolic 60–98; PULSE 78–121; RESP 16–20; TEMP 97.8–99.4; O2SAT 94–99
[~2016-12-26] VITALS: Ht 160 cm; Wt 51.9 kg
[2016-12-26] MEDS ORDERED: SODIUM CHLOR 0.9% 1000 ML INJ 1,000 ML IV ONE (11:30)
--- NOTE | 2016-12-26 11:32 | PD ---
HPI Chief Complaint: Psychiatric Symptoms Time Seen by Provider: 11:20 Travel History International Travel<30 days: No Contact w/Intl Traveler<30days: No Traveled to known affect area: No History of Present Illness HPI The patient was seen and examined in the presence of the nurse. This patient is brought in by her . She is been depressed long-term but more recently feeling suicidal. She had a tentative plan where she would try to cut herself with a knife but did not act on it. His been drinking alcohol today but denies any drug use. No overdose or pill use today. Symptoms severity is moderate to severe. No alleviating factors. Duration 2 days. She got out of drug rehabilitation 8 days ago, but signed herself out and did not complete the program. She denies any specific physical complaint. She is here voluntarily seeking psychiatric help [facility] Past Medical History Hx Anticoagulant Therapy: No Arthritis: No Blood Disorders: No Bipolar Disorder: Yes Anxiety: Yes Depression: Yes Heart Rhythm Problems: Yes ("LOW HEART RATE") Cancer: No Cardiovascular Problems: Yes High Cholesterol: No Chemotherapy: No Chest Pain: No Congestive Heart Failure: No Cerebrovascular Accident: Yes (23 YEARS AGO) Diabetes: No Diminished Hearing: No Endocrine: No Gastrointestinal Disorders: Yes (NAUSEA R/T MIGRAINES) GERD: Yes Genitourinary: No Headaches: Yes Hepatitis: No Hiatal Hernia: No Hypertension: No Immune Disorder: No Implanted Vascular Access Dvce: Yes Kidney Stones: Yes Musculoskeletal: Yes Neurologic: Yes Psychiatric: Yes Reproductive: No Respiratory: No Immunizations Current: Yes Migraines: Yes Myocardial Infarction: Yes Radiation Therapy: No Seizures: Yes (DURING R/T ECLAMPSIA) Thyroid Disease: No Ulcer: No : 5 Para: 4 : 1 Tubal Ligation: Yes Past Surgical History Abdominal Surgery: No AICD: No Appendectomy: Yes Arteriovenous Shunt: No Body Medical Devices: BREAST AUGMENTATION, SCREWS IN CERVICAL Cardiac Surgery: No Ear Surgery: No Endocrine Surgery: No Eye Surgery: No Genitourinary Surgery: No Gynecologic Surgery: No Hysterectomy: No Insulin Pump: No Joint Replacement: No Neurologic Surgery: Yes (BRAIN SWELLING ETILOGY UNKNOWN in 2014/ C5, C6 REPAIR) Oral Surgery: No Pacemaker: No Thoracic Surgery: No Other Surgery: Yes (BREAST AUGMENTATION) Social History Alcohol Use: No Tobacco Use: No (ON NICOTINE PATCH) Substance Use: No Allergies-Medications (Allergen,Severity, Reaction): Coded Allergies: Labetalol (Verified Allergy, Severe, DECREASED HEART RATE, 12/26/16) Reglan (Verified Allergy, Severe, Twitching, 12/26/16) Ultram (Verified Allergy, Severe, Seizures, 12/26/16) Compazine (Verified Allergy, Intermediate, Anaphylaxis, 12/26/16) Reported Meds & Prescriptions Reported Meds & Active Scripts Active No Active Prescriptions or Reported Medications Review of Systems General / Constitutional: No: Fever Eyes: No: Visual changes HENT: No: Headaches Cardiovascular: No: Irregular Rhythm Respiratory: No: Shortness of Breath Gastrointestinal: No: Abdominal Pain Genitourinary: No: Dysuria Musculoskeletal: No: Pain Skin: No Rash Neurologic: No: Weakness Psychiatric: Positive: Depression, Suicidal Ideations, Substance Abuse Endocrine: No: Polydipsia Hematologic/Lymphatic: No: Easy Bruising Physical Exam Narrative GENERAL: Well-nourished, well-developed patient who acts intoxicated, smells of alcohol. SKIN: Focused skin assessment reveals no rash and nodules. Skin is Warm and dry. HEAD: Atraumatic. Normocephalic. EYES: Pupils equal and round. No scleral icterus. No injection or drainage. ENT: No nasal bleeding or discharge. Mucous membranes pink and moist. NECK: Trachea midline. No JVD. CARDIOVASCULAR: Regular rate and rhythm. No murmur appreciated. Tachycardic at 115 RESPIRATORY: No accessory muscle use. Clear to auscultation. Breath sounds equal bilaterally. GASTROINTESTINAL: Abdomen soft, non-tender, nondistended. Hepatic and splenic margins not palpable. MUSCULOSKELETAL: No obvious deformities. No clubbing. No cyanosis. No edema. NEUROLOGICAL: Awake and alert. No obvious cranial nerve deficits. Motor grossly within normal limits. Normal speech. PSYCHIATRIC: Depressed mood and flat affect; insight and judgment reduced . Data Data Last Documented VS Vital Signs Date Time Temp Pulse Resp B/P Pulse Ox O2 Delivery O2 Flow Rate FiO2 12/26/16 11:51 98.2 121 18 150/98 94 Orders Complete Blood Count With Diff (12/26/16 11:27) Basic Metabolic Panel (Bmp) (12/26/16 11:27) Ed Urine Pregnancytest Poc (12/26/16 11:27) Electrocardiogram (12/26/16 11:27) Iv Access Insert/Monitor (12/26/16 11:27) Cath For Specimen (12/26/16 11:27) Psych Screen (12/26/16 11:27) Drug Screen, Random Urine (12/26/16 11:27) Alcohol (Ethanol) (12/26/16 11:27) Salicylates (Aspirin) (12/26/16 11:27) Tylenol (Acetaminophen) (12/26/16 11:27) Sodium Chlor 0.9% 1000 Ml Inj (Ns 1000 M (12/26/16 11:30) Potassium Chloride Eff (K-Lyte Cl Eff) (12/26/16 12:30) Labs Laboratory Tests Test 12/26/16 11:43 White Blood Count 12.0 TH/MM3 Red Blood Count 5.29 MIL/MM3 Hemoglobin 15.5 GM/DL Hematocrit 46.3 % Mean Corpuscular Volume 87.6 FL Mean Corpuscular Hemoglobin 29.4 PG Mean Corpuscular Hemoglobin 33.6 % Concent Red Cell Distribution Width 13.2 % Platelet Count 428 TH/MM3 Mean Platelet Volume 8.2 FL Neutrophils (%) (Auto) 71.7 % Lymphocytes (%) (Auto) 21.0 % Monocytes (%) (Auto) 6.9 % Eosinophils (%) (Auto) 0.0 % Basophils (%) (Auto) 0.4 % Neutrophils # (Auto) 8.7 TH/MM3 Lymphocytes # (Auto) 2.5 TH/MM3 Monocytes # (Auto) 0.8 TH/MM3 Eosinophils # (Auto) 0.0 TH/MM3 Basophils # (Auto) 0.0 TH/MM3 CBC Comment DIFF FINAL Differential Comment Sodium Level 134 MEQ/L Potassium Level 2.7 MEQ/L Chloride Level 89 MEQ/L Carbon Dioxide Level 29.9 MEQ/L Anion Gap 15 MEQ/L Blood Urea Nitrogen 19 MG/DL Creatinine 0.70 MG/DL Estimat Glomerular Filtration 91 ML/MIN Rate Random Glucose 154 MG/DL Calcium Level 8.7 MG/DL Urine Opiates Screen NEG Urine Barbiturates Screen NEG Urine Amphetamines Screen NEG Urine Benzodiazepines Screen NEG Urine Cocaine Screen NEG Urine Cannabinoids Screen NEG Ethyl Alcohol Level 156 MG/DL MDM Medical Decision Making Medical Screen Exam Complete: Yes Emergency Medical Condition: Yes Medical Record Reviewed: Yes Differential Diagnosis Suicidal ideation, depression, alcohol intoxication Narrative Course I have reviewed the patient's electronic medical record. 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 She is voluntary and does not require Givens act. Nurse called report to the psychiatric screener. Patient is medically stable. Diagnosis Primary Impression: Suicidal ideation Additional Impressions: Depression Qualified Code: F32.9 - Depression, unspecified depression type Hypokalemia Alcohol abuse with intoxication Alcohol intoxication Qualified Code: F10.920 - Alcohol intoxication, uncomplicated Scripts No Active Prescriptions or Reported Meds Isreal Rios MD December 26, 2016 11:32
[2016-12-26 11:54] LABS: AUTOMATED NEUTROPHIL # 8.7 TH/MM3 (1.8-7.7); BASOPHIL % 0.4 % (0.0-2.0); HEMATOCRIT 46.3 % (35.0-46.0); HEMO FLAGS DIFF FINAL; LYMPHOCYTE # 2.5 TH/MM3 (1.0-4.8); MEAN CELL VOLUME 87.6 FL (80.0-100.0); MEAN CORPUSCULAR HEMOGLOBIN 29.4 PG (27.0-34.0); MEAN CORPUSCULAR HGB CONC 33.6 % (32.0-36.0); MONO % 6.9 % (0.0-8.0); NEUT % 71.7 % (16.0-70.0); PLATELET COUNT 428 TH/MM3 (150-450); RED BLOOD COUNT 5.29 MIL/MM3 (4.00-5.30); RED CELL DISTRIBUTION WIDTH 13.2 % (11.6-17.2)
[2016-12-26 12:02] LABS: AMPHETAMINE, URINE NEG (NEG)
[2016-12-26 12:03] LABS: BARBITURATES, URINE NEG (NEG); COCAINE, URINE NEG (NEG)
[2016-12-26 12:10] LABS: CHLORIDE 89 MEQ/L (98-107); SODIUM (NA) 134 MEQ/L (136-145)
[2016-12-26 12:13] LABS: ANION GAP 15 MEQ/L (5-15); BICARBONATE 29.9 MEQ/L (21.0-32.0); BLOOD UREA NITROGEN 19 MG/DL (7-18)
[2016-12-26 12:14] LABS: GLOMERULAR FILTRATION RATE 91 ML/MIN (>89); POTASSIUM 2.7 MEQ/L (3.5-5.1)
[2016-12-26] MEDS ORDERED: POTASSIUM CHLORIDE 25 MEQ EFFERVESCENT TAB PO ONE (12:30)
[2016-12-26] MEDS ORDERED: ONDANSETRON HCL 4 MG/2 ML VIAL IVP ONE (13:15)
[2016-12-26 13:35] LABS: ACETAMINOPHEN LESS THAN 2.0 MCG/ML (10.0-30.0)
--- NOTE | 2016-12-26 16:04 | PD ---
History of Present Illness Chief Complaint: Psychiatric Symptoms Time Seen by Provider: 15:45 Travel History International Travel<30 Days: No Contact w/Intl Traveler<30days: No Known affected area: No Legal Status Legal Status: Voluntary History of Present Illness: History of Present Illness HPI The patient is a 41 year old female with history of depressive disorder, anxiety disorder, alcohol abuse that is brought in to [facility] by her for psychiatric evaluation. As per ED documentation " She has been depressed long -term but more recently feeling suicidal. She had a tentative plan where she would try to cut herself with a knife but did not act on it. Has been drinking alcohol today but denies any drug use. No overdose or pill use today. Symptoms severity is moderate to severe. No alleviating factors. Duration 2 days. She got out of drug rehabilitation 8 days ago, but signed herself out and did not complete the program." The is contacted by J pod JERSON Cabrera for collateral information. She informs me that the does not feel safe having the patient at home since she was discharged from [facility] ER with out any medication and more specifically Klonopin. As per the she was detoxed from the Klonopin and he reports that she had been misusing it. She has also began to drink and BAL on arrival is 156. EMR is reviewed. She was admitted to [facility] on Aug 18, 2015 for treatment of depression, anxiety as well as alcohol abuse. Patient is seen in J [facility]. She is a poor historian. She is dressed in hospital gown and she exposes herself several times during the screening. She is restless and gets up in the middle of the screening to pace. She states ' I need to get back on my medication. I need the Klonopin and the Ambien. She tells me that she last took her medication on Monday which coincides with her leaving [facility] ER. She appears restless, distracted and tells me that she is hearing voices that call her name. She denies any suicidal or homicidal ideation, intent plan and continues to repeat " I just need to get back on my medication". I will order some Zyprexa as she remains very restless. PFSH Past Medical History Hx Anticoagulant Therapy: No Arthritis: No Blood Disorders: No Bipolar Disorder: Yes Anxiety: Yes Depression: Yes Heart Rhythm Problems: Yes ("LOW HEART RATE") Cancer: No Cardiovascular Problems: Yes High Cholesterol: No Chemotherapy: No Chest Pain: No Congestive Heart Failure: No Cerebrovascular Accident: Yes (23 YEARS AGO) Diabetes: No Diminished Hearing: No Endocrine: No Gastrointestinal Disorders: Yes (NAUSEA R/T MIGRAINES) GERD: Yes Genitourinary: No Headaches: Yes Hepatitis: No Hiatal Hernia: No Hypertension: No Immune Disorder: No Implanted Vascular Access Dvce: Yes Kidney Stones: Yes Medical other: Yes (headaches) Musculoskeletal: Yes Neurologic: Yes Psychiatric: Yes Reproductive: No Respiratory: No Immunizations Current: Yes Migraines: Yes Myocardial Infarction: Yes Radiation Therapy: No Seizures: Yes (DURING R/T ECLAMPSIA) Thyroid Disease: No Ulcer: No ?: Not : 5 Para: 4 : 1 Tubal Ligation: Yes Past Surgical History Abdominal Surgery: No AICD: No Appendectomy: Yes Arteriovenous Shunt: No Body Medical Devices: BREAST AUGMENTATION, SCREWS IN CERVICAL Cardiac Surgery: No Ear Surgery: No Endocrine Surgery: No Eye Surgery: No Genitourinary Surgery: No Gynecologic Surgery: No Hysterectomy: No Insulin Pump: No Joint Replacement: No Neurologic Surgery: Yes (BRAIN SWELLING ETILOGY UNKNOWN in 2013/ C5, C6 REPAIR) Oral Surgery: No Pacemaker: No Thoracic Surgery: No Other Surgery: Yes (BREAST AUGMENTATION) Psychiatric History Psychiatric History Hx Psychiatric Treatment: [facility] [address] Willoughby for severla years. History of Inpatient Treatment: Yes ([facility]) Social History female. Lives with . No other info available. Hx Alcohol Use: Yes Hx Tobacco Use: Yes Hx Substance Use: Yes Substance Use Type: Alcohol, Prescription Medications, Benzos (Valium,Xanax) Other Substances Used: Pt. has had many admissions for Rx. overuse Hx of Substance Use Treatment: Yes ([facility]. Discharged 8 days ago) Family Psychiatric History Unknown Allergies-Medications (Allergen,Severity, Reaction): Coded Allergies: Labetalol (Verified Allergy, Severe, DECREASED HEART RATE, 12/26/16) Reglan (Verified Allergy, Severe, Twitching, 12/26/16) Ultram (Verified Allergy, Severe, Seizures, 12/26/16) Compazine (Verified Allergy, Intermediate, Anaphylaxis, 12/26/16) Reported Meds & Prescriptions Reported Meds & Active Scripts Active No Active Prescriptions or Reported Medications Review of Systems ROS Limitations: Clinical Condition Exam Alert: Yes [place]: Person (ox3) Mood: Anxious Affect: Restricted Speech: Clear Eye Contact: Indirect Memory Intact: Comment (not tested) Hallucinations: Auditory (hears her name being called.) Delusions: No Suicidal: Ideation (deneis any) Homicidal: Ideation (denies any) Insight/Judgement poor. poor MDM Medical Decision Making Medical Record Reviewed: Yes Assessment/Plan 41 year old female with history of depression, anxiety , alcohol abuse as well as reported benzodiazepine abuse who is under a voluntary status. patient was brought in by her . At this time the patient is very anxious and unable to function in outpatient setting. She meets criteria for increased level of care in inpatient psychiatric unit to monitor, maintain safety as well as to initiate psychiatric medication. Orders Complete Blood Count With Diff (12/26/16 11:27) Basic Metabolic Panel (Bmp) (12/26/16 11:27) Ed Urine Pregnancytest Poc (12/26/16 11:27) Electrocardiogram (12/26/16 11:27) Iv Access Insert/Monitor (12/26/16 11:27) Cath For Specimen (12/26/16 11:27) Psych Screen (12/26/16 11:27) Drug Screen, Random Urine (12/26/16 11:27) Alcohol (Ethanol) (12/26/16 11:27) Salicylates (Aspirin) (12/26/16 11:27) Tylenol (Acetaminophen) (12/26/16 11:27) Sodium Chlor 0.9% 1000 Ml Inj (Ns 1000 M (12/26/16 11:30) Potassium Chloride Eff (K-Lyte Cl Eff) (12/26/16 12:30) Ondansetron Inj (Zofran Inj) (12/26/16 13:15) Hydroxyzine Pamoate (Vistaril) (12/26/16 16:15) Results Vital Signs Date Time Temp Pulse Resp B/P Pulse Ox O2 Delivery O2 Flow Rate FiO2 12/26/16 15:50 97.8 120 18 162/98 98 12/26/16 14:07 120 18 162/98 98 Room Air 12/26/16 11:51 98.2 121 18 150/98 94 Laboratory Tests Test 12/26/16 11:43 White Blood Count 12.0 Red Blood Count 5.29 Hemoglobin 15.5 Hematocrit 46.3 Mean Corpuscular Volume 87.6 Mean Corpuscular Hemoglobin 29.4 Mean Corpuscular Hemoglobin 33.6 Concent Red Cell Distribution Width 13.2 Platelet Count 428 Mean Platelet Volume 8.2 Neutrophils (%) (Auto) 71.7 Lymphocytes (%) (Auto) 21.0 Monocytes (%) (Auto) 6.9 Eosinophils (%) (Auto) 0.0 Basophils (%) (Auto) 0.4 Neutrophils # (Auto) 8.7 Lymphocytes # (Auto) 2.5 Monocytes # (Auto) 0.8 Eosinophils # (Auto) 0.0 Basophils # (Auto) 0.0 CBC Comment DIFF FINAL Differential Comment Sodium Level 134 Potassium Level 2.7 Chloride Level 89 Carbon Dioxide Level 29.9 Anion Gap 15 Blood Urea Nitrogen 19 Creatinine 0.70 Estimat Glomerular Filtration 91 Rate Random Glucose 154 Calcium Level 8.7 Salicylates Level LESS THAN 1.7 Urine Opiates Screen NEG Acetaminophen Level LESS THAN 2.0 Urine Barbiturates Screen NEG Urine Amphetamines Screen NEG Urine Benzodiazepines Screen NEG Urine Cocaine Screen NEG Urine Cannabinoids Screen NEG Ethyl Alcohol Level 156 Diagnosis Primary Impression: Alcohol abuse with intoxication Additional Impressions: Depression Generalized anxiety disorder Ruled Out: Suicidal ideation Admitting Information Admitting Physician Requests: Admit Prescriptions No Active Prescriptions or Reported Meds Problem Qualifiers Additional Impressions: Depression Qualified Code: F33.1 - Moderate episode of recurrent major depressive disorder Aidee Lorenzo December 26, 2016 16:04
[2016-12-26] MEDS ORDERED: OLANZapine 5 MG TAB PO ONE (17:00)
[2016-12-26] MEDS ORDERED: ACETAMINOPHEN 325 MG TAB PO PRN (17:45)
[2016-12-26] MEDS ORDERED: ALUMINUM/MAGNESIUM/SIMETH 30 ML CUP PO PRN (17:45)
[2016-12-26] MEDS ORDERED: MAGNESIUM HYDROXIDE SUSP 30 ML CUP PO PRN (17:45)
[2016-12-26] MEDS ORDERED: LORazepam 2 MG TAB PO PRN (22:00)
[2016-12-26] MEDS ORDERED: FLUMAZENIL 0.5 MG/5 ML VIAL IV PUSH PRN (22:00)
[2016-12-26] MEDS ORDERED: LORazepam 1 MG TAB PO PRN (22:00)
[2016-12-26] MEDS ORDERED: LORazepam 2 MG/ML VIAL IV PUSH PRN ×4 (22:00)
[2016-12-27 00:31] VITALS: BP 121/71; PULSE 119; RESP 18; TEMP 100.1; O2SAT 96
[2016-12-27 00:48] LABS: POTASSIUM 2.9 MEQ/L (3.5-5.1)
[2016-12-27] MEDS ORDERED: FOLI1TAB4 PO (09:37)
[2016-12-27] MEDS ORDERED: GABA800T PO (09:37)
[2016-12-27] MEDS ORDERED: MULT1TAB84 PO (09:37)
[2016-12-27] MEDS ORDERED: PROP20TA3 PO (09:37)
[2016-12-27] MEDS ORDERED: SUMA20SP NASAL (09:37)
[2016-12-27] MEDS ORDERED: MAGN400T PO (09:37)
[2016-12-27] MEDS ORDERED: CLON2TAB PO (09:37)
[2016-12-27] MEDS ORDERED: FIORINAL2 PO (09:37)
[2016-12-27] MEDS ORDERED: ONDA4TAB7 SL (09:37)
[2016-12-27] MEDS ORDERED: ZOLP10TA3 PO (09:37)
--- NOTE | 2016-12-27 15:36 | EKG ---
Date Performed: 12/27/2016 Time Performed: 00:33:20 PTAGE: 41 years EKG: Sinus tachycardia Left axis deviation Possible anterior infarct - age undetermined Compared to prior tracing no significant change Abnormal ECG PREVIOUS TRACING : 12/26/2016 11.30 DOCTOR: Skylar Colindres Interpretating Date/Time 12/27/2016 15:34:14
--- NOTE | 2016-12-27 15:36 | EKG ---
Date Performed: 12/26/2016 Time Performed: 11:30:54 PTAGE: 41 years EKG: Sinus tachycardia Left axis deviation Possible septal infarct - age undetermined Lateral ST -T changes are nonspecific Compared to prior tracing no significant change Abnormal ECG PREVIOUS TRACING : 08/28/2015 09.53 DOCTOR: Skylar Colindres Interpretating Date/Time 12/27/2016 15:34:06
[2016-12-31] MEDS ORDERED: ONDANSETRON ODT 4 MG TAB PO STA (10:27)
--- NOTE | 2016-12-31 10:48 | HHI.HP ---
Provisional Diagnosis Admission Date December 26, 2016 at 17:46 [place] I. Alcohol intoxication f 10.920, major depressive disorder recurrent severe without psychosis f 33.2 Certification of Person's Competence To Provide Express and Informed Consent I have personally examined Alis Stewart , a person being served at [facility] on, December 31, 2016 10:26. Express and informed consent means consent voluntarily given in writing, by a competent person, after sufficient explanation and disclosure of the subject matter involved to enable the person to make a knowing and willful decision without any element of force, fraud, deceit, duress, or other form of constraint or coercion. This person is 18 years of age or older, is not now known to be incompetent to consent to treatment with a guardian advocate, and does not have a health care surrogate or proxy currently making medical treatment decisions. I have found this person to be one of the following: [x Competent to provide express and informed consent, as defined above, for voluntary admission to this facility and is competent to provide express and informed consent for treatment. He/she has the consistent capacity to make well reasoned, willful, and knowing decisions concerning his or her medical or mental health treatment. The person fully and consistently understands the purpose of the admission for examination/placement and is fully capable of personally exercising all rights assured [place] [] Incompetent to provide express and informed consent to voluntary admission, and this is incompetent to provide express and informed consent to treatment. The person must be transferred to involuntary status and a petition for a guardian advocate filed with the Circuit Court. [] Refusing to provide express and informed consent to voluntary admission but is competent to provide express and informed consent for treatment. The person must be discharged or transferred to involuntary status. Form shall be completed within 24 hours of a person's arrival at the receiving facility and filed in the clinical record of each person: 1. Admitted on a voluntary basis 2. Permitted to provide express and informed consent to his/her own treatment 3. Allowed to transfer from involuntary to voluntary status 4. Prior to permitting a person to consent to his or her own treatment after having been previously found incompetent to consent to treatment. History of Present Illness Capacity: Has Capacity HPI Patient is a 41 white female was initially brougt to the ED under Givens act 5 at 15 with visit [phone] seen screened in the ED blood alcohol level of 156 with negative toxicology. Patient seen by our nurse practitioner, she then complained of chest pain was noted to have C. difficile. On 12/27 was transferred to the medical service under visit [phone] and that visit patient was seen in consultation with Dr. Helms recommended further assessment. Patient was medically cleared on 12/30 and transferred back to the psychiatric unit where she was seen by me this morning. Of interest patient now has formed stool. At the present time patient sitting quietly in her on 2600 patient seen with nurse Mony. Patient did recognize me from prior consultation I did on this lady in July 2015 that there was alcohol involved with her also I'll lift the REES46 act allow her to be discharged. Patient states she's been under stress past few months related to the significant C. difficile issues. Frustration with treatment and extended symptomatology. Patient does denies suicidality homicidality voices or visions. She states she has primary care physicians in the [facility], and does see Dr. Rees 04 mental health issues. She states her has made an appointment with Dr. hamilton. In any event at the present time patient does not meet criteria for an inpatient psychiatric hospitalization under the Givens act. She does have her medication from Dr. hamilton at home. Thus I will lift the REES46 act allow the patient to be discharged her family with no Rx by me with follow-up physicians as mentioned above Review of Systems Constitutional: DENIES: Diaphoretic episodes, Fatigue, Fever, Weight gain, Weight loss, Chills, Dizziness, Change in appetite, Night Sweats Endocrine: DENIES: Abnorml menstrual pattern, Heat/cold intolerance, Polydipsia , Polyuria, Polyphagia Eyes: DENIES: Blurred vision, Diplopia, Eye inflammation, Eye pain, Vision loss , Photosensitivity, Double Vision Ears, nose, mouth, throat: DENIES: Tinnitus, Hearing loss, Vertigo, Nasal discharge, Oral lesions, Throat pain, Hoarseness, Ear Pain, Running Nose, Epistaxis, Sinus Pain, Toothache, Odynophagia Respiratory: DENIES: Apneas, Cough, Snoring, Wheezing, Hemoptysis, Sputum production, Shortness of breath Cardiovascular: DENIES: Chest pain, Palpitations, Syncope, Dyspnea on Exertion , PND, Lower Extremity Edema, Orthopnea, Claudication Gastrointestinal: DENIES: Abdominal pain, Black stools, Bloody stools, Constipation, Diarrhea, Nausea, Vomiting, Difficulty Swallowing, Anorexia Genitourinary: DENIES: Abnormal vaginal bleeding, Dysmenorrhea, Dyspareunia, Sexual dysfunction, Urinary frequency, Urinary incontinence, Urgency, Hematuria , Dysuria, Nocturia, Vaginal discharge Musculoskeletal: DENIES: Joint pain, Muscle aches, Stiffness, Joint Swelling, Back pain, Neck pain Integumentary: DENIES: Abnormal pigmentation, Pruritus, Rash, Nail changes, Breast masses, Breast skin changes, Nipple discharge Hematologic/lymphatic: DENIES: Bruising, Lymphadenopathy Immunologic/allergic: DENIES: Eczema, Urticaria Neurologic: COMPLAINS OF: Headache Psychiatric: COMPLAINS OF: Depression Past Psych History Psychological trauma history Patient denies Violence risk - others (6 mos) Low Violence risk - self (6 mos) Patient very suicidal ideation the past does deny now and is able contracted to no harm Substance Abuse History Drugs/Alcohol past 12 months Patient active alcohol abuser Past Family Social History Coded Allergies: Labetalol (Verified Allergy, Severe, DECREASED HEART RATE, 12/26/16) Reglan (Verified Allergy, Severe, Twitching, 12/26/16) Ultram (Verified Allergy, Severe, Seizures, 12/26/16) Compazine (Verified Allergy, Intermediate, Anaphylaxis, 12/26/16) Past Medical History Multiple please see MedSurg assessments Active Scripts [Hydrocortisone Acetate] (Hemorrhoidal Hc Supp)25 MG SUPP No Conflict Check25 Mg RECTAL BID #6 SUPP Prov:Missy Belcher 12/30/16 Mirtazapine 15 Mg Tab15 Mg PO HS #30 TAB Ref 0 Prov:Missy BelcherP 12/30/16 Metronidazole (Flagyl)500 Mg [id number] Mg PO Q6HR #28 TAB Ref 0 Prov:Missy BelcherP 12/30/16 Reported Medications Ondansetron Odt 4 Mg Tab4 Mg SL Q6HR PRN (Nausea/Vomiting) Ref 0 12/27/16 Sapedirpho-Akhyoqo-Boifjnrl (Fiorinal)50-325-40 Mg Cap1 Cap PO Q6HR Ref 0 Do not exceed 6 capsules/day. 12/27/16 Folic Acid (Folate)1 Mg Tab1 Mg PO DAILY Ref 0 5/9/17 Multiple Vitamins W/ Minerals (Multivitamin Adults)1 Tab1 Tab PO DAILY Ref 0 12/27/16 Gabapentin 800 Mg [id number] Mg PO TID #90 TAB Ref 0 12/27/16 Propranolol 20 Mg Tab20 Mg PO TID #90 TAB Ref 0 12/27/16 Discontinued Reported Medications Clonazepam 2 Mg Tab2 Mg PO TID #90 TAB Ref 0 12/27/16 Magnesium Oxide 400 Mg Tab1 Tab PO DAILY 12/27/16 Sumatriptan Nasal [place] 20 Mg/Act Spray1 [place] NASAL ONCE #1 BOTTLE Ref 0 [place] in one nostril. If headache has not resolved within 2 hours or returns, the dose may be repeated once after 2 hours 12/27/16 Zolpidem 10 Mg Tab10 Mg PO HS PRN (INSOMNIA) Ref 0 12/27/16 Family History Patient vague about mental health history and family Social History Patient lives with Patient's Strengths (min. 2) Patient verbal irritable access healthcare has supportive family Physical Exam Patient medically cleared with visit [phone] Mental Status Examination Alert oriented white female sitting calmly in her room somewhat disheveled appearance cooperative with fair eye contact reactive with occasional small smile nurse Mony present throughout session Appearance Somewhat disheveled Speech: Unremarkable Orientation: x3 Memory: Unremarkable Thought Process: Logical Thought Content: Unremarkable Language Gu[place] Fund of Knowledge Fair Hallucination Type: None Attention and Concentration: Other (fair) Suicidal Ideation: No (denies) Previous Suicide Attempts: No (denies) Homicidal Ideation: No (denies) Previous Homicide Attempts: No (denies) Insight: Fair Judgment: Poor Affect: Other (slight decrease range of motion intensity) Mood: Euthymic (to somewhat dysphoric) Motor Activity: Normal gait Assessment & Plan Problem List: (1) Alcohol intoxication ICD Code: F10.929 (2) Major depressive disorder, recurrent severe without psychotic features ICD Code: F33.2 Assessment & Plan Estimated LOS: days at this time patient does not meet criteria for inpatient psychiatric hospitalization I will lift the Givens act patient to be discharged to her family, no Rx by me, follow-up with the [facility], follow- up with Dr. Cabrera hamilton Discharge Planning See above Request HC Surrog/Guard Advoc?: No Problem Qualifiers (1) Alcohol intoxication: Qualified Code: F10.920 - Alcohol intoxication, uncomplicated James Hoskins MD December 31, 2016 10:48
== END 2016-12-27 00:42 | disposition short-term general hospital (02) | DRG 885 ==
LOC: PHED 11:00 → NEDA 17:46 → H260 19:08
PROVIDERS: ADMIT Psychiatry & Neurology Psychiatry; ATTEND Psychiatry & Neurology Psychiatry
DX: F33.1 Major depressive disorder, recurrent, moderate (principal); R45.851 Suicidal ideations; E87.6 Hypokalemia; F10.129 Alcohol abuse with intoxication, unspecified; Y90.6 Blood alcohol level of 120-199 mg/100 ml; F41.1 Generalized anxiety disorder; Z87.891 Personal history of nicotine dependence; Z88.8 Allergy status to other drugs, medicaments and biological substances
CPT/HCPCS: 80048; 80307; 84132; 84484; 84703; 85025; 93005; 96374; 99281; J2405; J7030; P9612

== ENCOUNTER 2016-12-27 00:59 | Observation (INO) | payer BC ==
[2016-12-27] VITALS (7 sets, daily range): BP systolic 119–136; BP diastolic 69–84; PULSE 98–132; RESP 18–20; TEMP 98–99.9; O2SAT 97–99
--- NOTE | 2016-12-27 02:11 | HHI.HP ---
[facility] Service [facility] Primary Care Physician Lea Fournier MD Admission Diagnosis Diagnoses: Chief Complaint: chest pain with hypokalemia Travel History International Travel<30 Days: No Contact w/Intl Traveler <30 Da: No Traveled to Known Affected Are: No History of Present Illness This is a 41 year old female patient with a past medical history which includes recurrent sinusitis, seasonal allergies, hypertension, kidney stones, fibromyalgia, cervical cancer, migraine headaches, anxiety/depression and polysubstance abuse. Patient is a poor historian information gathered from patient as well as prior charting. Per ER documentation, "this patient is brought in by her . She is been depressed long-term but more recently feeling suicidal. She had a tentative plan where she would try to cut herself with a knife but did not act on it. His been drinking alcohol today but denies any drug use. No overdose or pill use today. Symptoms severity is moderate to severe. No alleviating factors. Duration 2 days. She got out of drug rehabilitation 8 days ago, but signed herself out and did not complete the program. She denies any specific physical complaint. She is here seeking psychiatric help." We were called by psychiatric attending to see the patient for chest pain, hypokalemia, concerns for ETOH withdraw and requested us transfer to medical floor. Patient reports that she has been having intermitted left sided chest pain since 12/26/2016 AM. Patient describes the pain as burning and feels as though something is stuck in her chest. Chest pain does radiate to the left side of her neck and is associated with nausea. Chest pain last for approximally 5 secs and resolves spontaneously then starts again. Patient is not sure what makes the pain better, but reports worsened by anxiety. Patient denies history of CAD. Patient does report that she has gotten similar chest pain before when she gets anxious. Chest pain is reproducible with palpation. Patient also reports diarrhea x 2 days described as constant watery stools- denies black or red blood present. Associated with abdominal gas and cramping. Patient does reports last using cocaine 1 week ago and was recently treated in a detox/recovery center for drugs and alcohol. Review of Systems ROS Limitations: Poor Historian Except as stated in HPI: all other systems reviewed are Neg Past Family Social History Past Medical History Recurrent sinusitis Allergies/hay fever Hypertension Kidney stones, Past UTI, Urinary incontinence, Other history (retention) Fibromyalgia Ovarian cancer migraine headaches Anxiety, Depression Past Surgical History s/p C5-7 ACDF Appendectomy Tubal ligation Breast surgery (augmentation) Reported Medications No Active Prescriptions or Reported Medications Allergies: Coded Allergies: Labetalol (Verified Allergy, Severe, DECREASED HEART RATE, 12/26/16) Reglan (Verified Allergy, Severe, Twitching, 12/26/16) Ultram (Verified Allergy, Severe, Seizures, 12/26/16) Compazine (Verified Allergy, Intermediate, Anaphylaxis, 12/26/16) Active Ordered Medications Current Medications Medications (Trade) Dose Ordered Sig/Amos Route Start Time Stop Time Status Last Admin (NS 1000 ml Inj) 1,000 ml @ 84 mls/hr [id number] IV 12/27/16 02:03 (NS Flush) 2 ml UNSCH PRN IV FLUSH 12/27/16 02:15 (NS Flush) 2 ml BID IV FLUSH 12/27/16 09:00 (Tylenol) 650 mg Q4H PRN PO 12/27/16 02:15 (Zofran Inj) 4 mg Q6H PRN IVP 12/27/16 02:15 (Lovenox Inj) 40 mg Q24H SQ 12/27/16 06:00 (Narcan Inj) 0.4 mg UNSCH PRN IV 12/27/16 02:15 (Ecotrin Ec) 81 mg DAILY PO 12/27/16 02:15 12/27/16 02:32 (Protonix) 40 mg DAILY@06 PO 12/27/16 06:00 (Nitroglycerin 2% Oint) 0.5 inch Q8H TOPICAL 12/27/16 02:15 12/27/16 02:34 (Romazicon Inj) 0.2 mg Q1M PRN IV PUSH 12/27/16 02:45 (Ativan) 1 mg Q4H PRN PO 12/27/16 02:45 (Ativan Inj) 1 mg Q4H PRN IV PUSH 12/27/16 02:45 (Ativan) 2 mg Q2H PRN PO 12/27/16 02:45 (Ativan Inj) 2 mg Q2H PRN IV PUSH 12/27/16 02:45 (Ativan Inj) 2 mg Q1H PRN IV PUSH 12/27/16 02:45 (Ativan Inj) 2 mg Q15M PRN IV PUSH 12/27/16 02:45 Family History Significant for diabetes mellitus and skin cancer in her grandfather. Sister has a history of migraine headaches. Social History ETOH use reports she does not drink on a daily basis but ETOH level was 156 today tobacco use 1PPD x20 years illicit drug use: crack cocaine last used 1 week ago Physical Exam Physical Exam GENERAL: This is a well-nourished, well-developed patient, appears uncomfortable. SKIN: No rashes, ecchymoses or lesions. Cool and dry. HEAD: Atraumatic. Normocephalic. No temporal or scalp tenderness. EYES: Extraocular motions intact. No scleral icterus. No injection or drainage. CARDIOVASCULAR: Regular rate and rhythm without murmurs, gallops, or rubs. Chest pain reproducible with palpation RESPIRATORY: Clear to auscultation. Breath sounds equal bilaterally. No wheezes , rales, or rhonchi. GASTROINTESTINAL: Abdomen soft, tender to palpation all four quadrants, nondistended. MUSCULOSKELETAL: Extremities without clubbing, cyanosis, or edema. No joint tenderness, effusion, or edema noted. No calf tenderness. Negative Homans sign bilaterally. NEUROLOGICAL: Awake and alert. Motor and sensory grossly within normal limits. 4 out of 5 muscle strength in all muscle groups. Normal speech. Assessment and Plan Problem List: (1) Chest pain ICD Code: R07.9 Status: Acute (2) Hypokalemia ICD Code: E87.6 Status: Acute Assessment and Plan This is a 41 year old female patient with a past medical history which includes recurrent sinusitis, seasonal allergies, hypertension, kidney stones, fibromyalgia, cervical cancer, migraine headaches, anxiety/depression and polysubstance abuse. Per ER documentation, "this patient is brought in by her . She is been depressed long-term but more recently feeling suicidal. She had a tentative plan where she would try to cut herself with a knife but did not act on it. We were called by psychiatric attending to see the patient for chest pain, hypokalemia, concerns for ETOH withdraw and requested us transfer to medical floor. Chest pain atypical- reproducible with palpation initial troponin <0.02, continue serial troponin repeat EKG reviewed by myself and Dr. Bartlett reveals sinus tachycardia no acute ST changes Serial EKG Aspirin now and daily Nitro PRN Hypokalemia potassium 2.9 on recheck Magnesium level ordered and pending 40 mEq potassium by mouth and 40 mEq potassium IV ordered Recheck BMP in a.m. Polysubstance abuse Patient counseled encouraged to abstain from EtOH use tobacco use and illicit drug use CIOK protocol started Diarrhea with recent treatment and alcohol and drug rehabilitation center Check stools for C. difficile Suicidal ideations Anxiety/depression Patient currently placed on Givens act with sitter at bedside Consult psychiatry DVT prophylaxis with Lovenox subcutaneous Discussed with psychiatry attending, nursing, patient Written by Fely Roberto, acting as scribe for Dr. Bartlett on 12/27/16 at 05 :03. This note was transcribed by scribe [Fely Roberto]. I, Dr. Mecca Bartlett personally performed the history, physical exam, and medical decision making; and confirmed the accuracy of the information in the transcribed note. Authenticated by Dr. Mecca Bartlett on 12/27/16 at 0530. Fely Roberto December 27, 2016 02:11 Mecca Bartlett MD December 27, 2016 07:44
[2016-12-27] MEDS ORDERED: POTASSIUM CHLORIDE 20 MEQ CONTROLLED RELEASE TAB PO ONE ×2 (02:15→09:00)
[2016-12-27] MEDS ORDERED: NITROGLYCERIN 2% OINT 1 GM PACKET TOPICAL SCH (02:15)
[2016-12-27] MEDS ORDERED: SODIUM CHLORIDE 0.9% FLUSH 10 ML FLUSH IV FLUSH PRN (02:15)
[2016-12-27] MEDS ORDERED: NALOXONE HCL 0.4 MG/ML AMP IV PRN (02:15)
[2016-12-27] MEDS ORDERED: ACETAMINOPHEN 325 MG TAB PO PRN (02:15)
[2016-12-27] MEDS: ASPIRIN EC 81 MG TABEC PO SCH ×2 (02:32→08:42)
[2016-12-27] MEDS: NITROGLYCERIN 2% OINT 1 GM PACKET TOPICAL SCH ×2 (02:34→08:51)
[2016-12-27] MEDS ORDERED: FLUMAZENIL 0.5 MG/5 ML VIAL IV PUSH PRN (02:45)
[2016-12-27] MEDS ORDERED: LORazepam 2 MG/ML VIAL IV PUSH PRN ×2 (02:45)
[2016-12-27] MEDS: SODIUM CHLOR 0.9% 1000 ML INJ 1,000 ML IV SCH ×2 (03:54→14:11)
[2016-12-27] MEDS: LORazepam 2 MG/ML VIAL IV PUSH PRN ×5 (03:56→22:14)
[2016-12-27] MEDS: ENOXAPARIN SODIUM 40 MG/0.4 ML SYRINGE SQ SCH (05:28)
[2016-12-27] MEDS: PANTOPRAZOLE SOD 40 MG DELAYED RELEASE TAB PO SCH (05:28)
--- NOTE | 2016-12-27 06:28 | RADRPT ---
EXAM DATE/TIME: 12/27/2016 06:05 [facility] COMPARISON: No previous studies available for comparison. INDICATIONS : Chest pain, tightness in chest, short of breath, anxiety MEDICAL HISTORY : None. SURGICAL HISTORY : cervical fusion ENCOUNTER: Initial ACUITY: 2 days PAIN SCORE: 2/10 LOCATION: Bilateral chest FINDINGS: A single view of the chest demonstrates the lungs to be symmetrically aerated without evidence of mas s, infiltrate or effusion. The cardiomediastinal contours are unremarkable. Osseous structures are intact. CONCLUSION: No acute disease. Stefano Rubi Jr., MD on December 27, 2016 at 6:26 Board Certified Radiologist. This report was verified electronically.
[2016-12-27 08:05] LABS: ANION GAP 15 MEQ/L (5-15); BICARBONATE 24.7 MEQ/L (21.0-32.0); BLOOD UREA NITROGEN 17 MG/DL (7-18); CHLORIDE 98 MEQ/L (98-107); GLOMERULAR FILTRATION RATE 46 ML/MIN (>89); HDL CHOLESTEROL 76.9 MG/DL (40.0-60.0); LDL CHOLESTEROL 28 MG/DL (0-99); POTASSIUM 3.1 MEQ/L (3.5-5.1); SODIUM (NA) 138 MEQ/L (136-145)
[2016-12-27] MEDS: SODIUM CHLORIDE 0.9% FLUSH 10 ML FLUSH IV FLUSH SCH ×2 (08:43→21:00)
[2016-12-27 09:24] LABS: C. DIFF EPI 027 PRESUMPTIVE NEGATIVE (NEGATIVE)
[2016-12-27] MEDS ORDERED: FIORINAL2 PO (09:37)
[2016-12-27] MEDS ORDERED: CLON2TAB PO (09:37)
[2016-12-27] MEDS ORDERED: ONDA4TAB7 SL (09:37)
[2016-12-27] MEDS ORDERED: FOLI1TAB4 PO (09:37)
[2016-12-27] MEDS ORDERED: MULT1TAB84 PO (09:37)
[2016-12-27] MEDS ORDERED: SUMA20SP NASAL (09:37)
[2016-12-27] MEDS ORDERED: ZOLP10TA3 PO (09:37)
[2016-12-27] MEDS ORDERED: MAGN400T PO (09:37)
[2016-12-27] MEDS ORDERED: GABA800T PO (09:37)
[2016-12-27] MEDS ORDERED: PROP20TA3 PO (09:37)
[2016-12-27] MEDS ORDERED: POTASSIUM CHLORIDE 10 MEQ CONTROLLED RELEASE TAB PO ONE (10:30)
[2016-12-27 10:50] LABS: C. DIFF TOXIN PCR POSITIVE (NEGATIVE)
[2016-12-27 10:53] LABS: MAGNESIUM 2.4 MG/DL (1.5-2.5)
[2016-12-27] MEDS: metroNIDAZOLE 500 MG TAB PO SCH ×3 (11:28→22:22)
--- NOTE | 2016-12-27 11:54 | MB ---
cc: CARRIE ESCOBAR MD DATE OF CONSULTATION 12/27/2016 DATE OF 1975 REASON FOR CONSULTATION AND ADMISSION Chest pain, depression with recent feelings of suicidal, polysubstance abuse. TRAVEL IN THE LAST 30 DAYS None HISTORY OF PRESENT ILLNESS This is a pleasant 41 year-old white female who has multiple medical comorbidities that we will discuss. She has had a long-term problem with depression and polysubstance abuse and is now feeling suicidal. According to the record and the patient, she considered cutting herself with a knife, but did not act upon it. She recently had been in a drug rehab program, but checked herself out approximately eight days ago and has used crack cocaine times one. She states that her medications have been all messed up and that it is causing her to have possible symptoms of withdrawal and uncontrollable urges to use alcohol and drugs. The patient states that she has had a history of chest pain. She is unaware of the length of time this has been going on, but she notes it as a mid sternal burning sensation that comes upon her with increased anxiety after eating and when using drugs. She notes shortness of breath which seems to wax and wane with the chest pain. She denies any radiation into her arms or extremities or her neck. She is currently not having any chest pain and has no facial grimace. The patient was admitted initially with a very low potassium and has received IV NPO potassium. The last potassium noted was 3.1. The patient also has had symptoms of abdominal pain with extreme diarrhea. This has been constant for approximately two days, dark and watery with brown watery stools, but denies any blood or black tarry stools. She has had a low grade fever, currently 99.9. Her abdomen is still showing some generalized tenderness. The patient currently is having no nausea or vomiting, but has noted some nausea and some decreased appetite over the past few days. MEDICAL HISTORY Includes: 1. Polysubstance abuse 2. Cervical cancer 3. Migraine headaches 4. Anxiety/depression 5. Kidney stones 6. Seasonal allergies 7. Recurrent sinusitis 8. Acute encephalopathy with major depressive disorder. 9. Alcohol intoxication 10. Hypokalemia 11. Anemia 12. Urinary incontinence 13. Urinary retention 14. UTI 15. Seizure 16. Panic attacks 17. Tobacco dependence 18. Bipolar disorder 19. Bradycardia 20. CVA during childbirth 21. Preeclampsia with her PAST SURGICAL HISTORY 1. Appendectomy 2. Breast augmentation 3. Tubal ligation 4. C-spine fusion ALLERGIES COMPAZINE, LABETALOL, REGLAN AND ULTRAM. ACTIVE MEDICATIONS 1. Gabapentin 2. Zolpidem 3. Clonazepam 4. Propranolol 5. Multivitamins 6. Fiorinal 7. Mag oxide 8. Migraine headache nasal spray 9. Folic acid SOCIAL HISTORY The patient is current . She has four children, three of which are grown. Currently lives at home with her . She is positive for alcohol, tobacco and polysubstance abuse. REVIEW OF SYSTEMS As 12-point review was obtained, positive noted explicitly in the HPI which do include multi-symptom chest pain, shortness of breath, anxiety, suicidal ideations, nausea, diarrhea, low grade fever, and any others mentioned. Other systems are negative or unremarkable. PHYSICAL EXAM CURRENT VITAL SIGNS: Temperature 99.9, pulse labile between 107 and 132, respirations 20, blood pressure 126/78, O2 sat 97 on room air. GENERAL: This is a slim, but appears well-nourished white female who looks to be her staged age resting in the bed. She is resting with her eye closed, but does arouse to verbal stimuli and will carry on a communication. She is a fairly good historian. SKIN: Her skin is pink. Mucous membranes warm and dry. HEAD, EYES, EARS, NOSE, AND THROAT: Atraumatic, normocephalic. PERRLA at 3 mm. NECK: Thin, supple. CARDIOVASCULAR: S1 and S2, regular in rhythm, tachycardic rate. No murmurs, rubs or gallops audible. She has no edema and her pulses are intact. PULMONARY: Essentially clear anteriorly and posteriorly with no wheezes, rales or rhonchi. Her volumes are low. ABDOMEN: Flat, soft, nontender and nondistended. Active bowel sounds in all quadrants. MUSCULOSKELETAL: She can move all her extremities with purpose. She has equal hand elevator examiner and she can overcome resistance. NEUROLOGIC: She was initially drowsy, but awakened easily and now alert and able to carry on a conversation. She is a fairly good historian with her history, but could not remember how long she had been having chest pain. PSYCHOLOGICAL: Affect and judgment are calm at this present time, but does have periods of anxiety. DIAGNOSTIC DATA C. Diff and C. Diff toxin is pending. Sodium 138, potassium 3.1, chloride 98, carbon dioxide 24.7, amnion gap 15, BUN 17, creatinine 1.26, random glucose is 105, hemoglobin A1c is pending, calcium 7.8. Troponin 0.02, cholesterol is 132, triglycerides 138, LDL is 28, HDL 76.9, her ratio was 1.71. IMAGING STUDIES Show chest x-ray to be no acute disease process. ASSESSMENT AND PLAN 1. Chest pain. Rule out cardiac event or coronary artery disease. 2. Hypokalemia. 3. Acute kidney insufficiency 4. Anxiety and depression with suicidal ideation. 5. Diarrhea 6. Polysubstance abuse with probable withdrawal symptoms Our plan is to check her serial enzymes and rule out a cardiac event. The patient does have some tachycardia, but this could be secondary to withdrawal. We will consult cardiology for their expert opinion for any further testing needing to be done now. We are going to continue to treat her hypokalemia with p.o. and/or IV meds and monitor her labs which will include all other chemistry levels during this possible withdrawal phase. Her polysubstance abuse was within the past week. The patient has recently been in a drug rehab program and was attempting to do stay clean. We will monitor her vital signs, her lab work and treat her symptoms. She is currently Givens Acted and has a sitter with her at all times. Diarrhea possibly could be withdrawal versus viral. We are checking her for C. Diff and we will treat her symptoms. The patient will have DVT prophylaxis, IV fluids, Protonix for PUD prophylaxis. Her DVT prophylaxis is Lovenox. Her medications have been reconciled and she is being maintained on an Ativan protocol for detox. The patient also has nitroglycerin ointment on half inch q8. We will check labs in the morning after she has another treatment regimen of potassium. It looks like the patient has already had 40 mEq today of potassium. We will go ahead and give her 30 mEq times two doses more and then we will recheck her potassium again. To my knowledge, the patient is full code, full aggressive care. We are following her multi-comorbid needs and giving her supportive care at the same time. Dictated by: CAYDEN Parker Carrie Escobar MD JP/CLARITA /10:37 AM /11:23 AM PT SEEN AND EXAMINED ABOVE CHART REVIEWED INCLUDING MEDS LABS AND RAD VITOR AND NOTES DW PT DW AMMONIA REFRIGERATION TECHNICIAN ABOUT PLAN OF CARE JESSI RN UMMD
[2016-12-27] MEDS: ONDANSETRON HCL 4 MG/2 ML VIAL IVP PRN ×2 (12:15→18:14)
[2016-12-27 12:46] LABS: MAGNESIUM 2.4 MG/DL (1.5-2.5)
--- NOTE | 2016-12-27 15:23 | PD.CONS ---
Provisional Diagnosis Admission Date December 27, 2016 at 01:45 [place] I. Major depressive disorder, recurrent, severe, without psychosis, alcohol and cocaine use disorder [place] II. Deferred [place] III. Migraines [place] IV. Substance abuse [place] V. 40 History of Present Illness Service Psychiatry Consult Requested By Primary Care Physician Lea Fournier MD HPI The patient is a 41-year-old woman, domicile with her and her daughter, unemployed, supported by , with psychiatric history of depression, anxiety, cocaine and alcohol use disorder, 5 psychiatric hospitalizations, she denies suicidal attempts, history of self cutting behavior , active outpatient psychiatric care, she is on Lamictal 200 mg and Ambien 10 mg , gabapentin 300 mg 3 times a day, clonazepam 2 mg 3 times a day, medical history which includes recurrent sinusitis, seasonal allergies, hypertension, kidney stones, fibromyalgia, cervical cancer, migraine headaches. As Per ER documentation, "this patient is brought in by her . She is been depressed long-term but more recently feeling suicidal. She had a tentative plan where she would try to cut herself with a knife but did not act on it. Has been drinking alcohol today but denies any drug use. No overdose or pill use today. Symptoms severity is moderate to severe. No alleviating factors. Duration 2 days. She got out of drug rehabilitation 8 days ago, but signed herself out and did not complete the program. Patient reports diarrhea, and she is positive for C. difficile. On psychiatric evaluation patient is poorly cooperative, can of irritable and oppositional. She says that she overdosed yesterday "because he wanted to ". She says that she has been depressed for many weeks now, using cocaine and alcohol persistently. Patient will not elaborate about the circumstances, reason and content of her feeling of depression. She also says that she has been hearing voices of babies crying. Patient is non-cooperative with cognitive tests. She reports the use of cocaine and alcohol. Review of Systems Constitutional: DENIES: Diaphoretic episodes, Fatigue, Fever, Weight gain, Weight loss, Chills, Dizziness, Change in appetite, Night Sweats Endocrine: DENIES: Abnorml menstrual pattern, Heat/cold intolerance, Polydipsia , Polyuria, Polyphagia Eyes: DENIES: Blurred vision, Diplopia, Eye inflammation, Eye pain, Vision loss , Photosensitivity, Double Vision Cardiovascular: DENIES: Chest pain, Palpitations, Syncope, Dyspnea on Exertion , PND, Lower Extremity Edema, Orthopnea, Claudication Gastrointestinal: COMPLAINS OF: Diarrhea, DENIES: Abdominal pain, Black stools , Bloody stools, Constipation, Nausea, Vomiting, Difficulty Swallowing, Anorexia Musculoskeletal: DENIES: Joint pain, Muscle aches, Stiffness, Joint Swelling, Back pain, Neck pain Integumentary: DENIES: Abnormal pigmentation, Pruritus, Rash, Nail changes, Breast masses, Breast skin changes, Nipple discharge Immunologic/allergic: DENIES: Eczema, Urticaria Psychiatric: COMPLAINS OF: Depression, Suicidal Ideation Past Family Social History Coded Allergies: Labetalol (Verified Allergy, Severe, DECREASED HEART RATE, 12/26/16) Reglan (Verified Allergy, Severe, Twitching, 12/26/16) Ultram (Verified Allergy, Severe, Seizures, 12/26/16) Compazine (Verified Allergy, Intermediate, Anaphylaxis, 12/26/16) Reported Medications Ondansetron Odt 4 Mg Tab4 Mg SL Q6HR PRN (Nausea/Vomiting) Ref 0 12/27/16 Lfhgqxiymh-Rguotii-Tfcxysny (Fiorinal)50-325-40 Mg Cap1 Cap PO Q6HR Ref 0 Do not exceed 6 capsules/day. 12/27/16 Clonazepam 2 Mg Tab2 Mg PO TID #90 TAB Ref 0 12/27/16 Folic Acid (Folate)1 Mg Tab1 Mg PO DAILY Ref 0 12/27/16 Magnesium Oxide 400 Mg Tab1 Tab PO DAILY 12/27/16 Multiple Vitamins W/ Minerals (Multivitamin Adults)1 Tab1 Tab PO DAILY Ref 0 12/27/16 Gabapentin 800 Mg Exf360 Mg PO TID #90 TAB Ref 0 12/27/16 Propranolol 20 Mg Tab20 Mg PO TID #90 TAB Ref 0 12/27/16 Sumatriptan Nasal [place] 20 Mg/Act Spray1 [place] NASAL ONCE #1 BOTTLE Ref 0 [place] in one nostril. If headache has not resolved within 2 hours or returns, the dose may be repeated once after 2 hours 12/27/16 Zolpidem 10 Mg Tab10 Mg PO HS PRN (INSOMNIA) Ref 0 12/27/16 Current Medications Medications (Trade) Dose Ordered Sig/Amos Route Start Time Stop Time Status Last Admin (NS 1000 ml Inj) 1,000 ml @ 84 mls/hr [id number] IV 12/27/16 02:03 12/27/16 14:11 (NS Flush) 2 ml UNSCH PRN IV FLUSH 12/27/16 02:15 (NS Flush) 2 ml BID IV FLUSH 12/27/16 09:00 (Tylenol) 650 mg Q4H PRN PO 12/27/16 02:15 (Zofran Inj) 4 mg Q6H PRN IVP 12/27/16 02:15 12/27/16 12:15 (Lovenox Inj) 40 mg Q24H SQ 12/27/16 06:00 12/27/16 05:28 (Narcan Inj) 0.4 mg UNSCH PRN IV 12/27/16 02:15 (Ecotrin Ec) 81 mg DAILY PO 12/27/16 02:15 12/27/16 08:42 (Protonix) 40 mg DAILY@06 PO 12/27/16 06:00 12/27/16 05:28 (Nitroglycerin 2% Oint) 0.5 inch Q8H TOPICAL 12/27/16 02:15 12/27/16 08:51 (Romazicon Inj) 0.2 mg Q1M PRN IV PUSH 12/27/16 02:45 (Ativan) 1 mg Q4H PRN PO 12/27/16 02:45 (Ativan Inj) 1 mg Q4H PRN IV PUSH 12/27/16 02:45 12/27/16 13:16 (Ativan) 2 mg Q2H PRN PO 12/27/16 02:45 (Ativan Inj) 2 mg Q2H PRN IV PUSH 12/27/16 02:45 12/27/16 03:56 (Ativan Inj) 2 mg Q1H PRN IV PUSH 12/27/16 02:45 (Ativan Inj) 2 mg Q15M PRN IV PUSH 12/27/16 02:45 (Flagyl) 500 mg Q6HR PO 12/27/16 12:00 12/27/16 11:28 Family History Patient denies psychiatric family history Social History Patient was born and raised in [place], she lives with her in [facility] , she is unemployed, supported by , her highest level of education is high school Patient's Strengths (min. 2) Family support Physical Exam Physical examination patient does not present any tremors, no withdrawal symptoms, no EPS, stiffness Vital Signs Vital Signs Date Time Temp Pulse Resp B/P Pulse Ox O2 Delivery O2 Flow Rate FiO2 12/27/16 12:41 99.5 100 20 119/69 97 Lab Results Positive for C. difficile QTC 434 Mental Status Examination Appearance woman, [facility], fair hygiene, oppositional, superficially and minimal cooperative Speech: Hesitant, Slow Orientation: x3 Memory: Unremarkable Thought Process: Logical, Goal Directed, Linear Thought Content: Unremarkable Language Limited due to reticence Attention and Concentration: Good Attention Remarks No limitation in attentions present Suicidal Ideation: Yes Previous Suicide Attempts: Yes Homicidal Ideation: No Insight: Poor Affect: Sad Mood: Angry, Sad Motor Activity: Normal gait Assessment & Plan Problem List: (1) Major depressive disorder Assessment & Plan: On psychiatric evaluation patient is kind of resistant, oppositional, refusing to provide much information about circumstances of her recent hospitalization, she does report depression, also reports recent overdose with suicidal intentions. Patient seems to be objectively depressed, fragile and vulnerable. She definitely meets criteria for involuntary psychiatric admission for stabilization and safety. Continue sitter in medical floor. Will restart gabapentin 300 mg twice a day, Ambien 10 mg, add Remeron 50 mg at bedtime for depression. Agree with [facility] protocol for alcohol withdrawal. Collateral information sustained pending. Please, transfer patient to psychiatry once medically appropriate. Extensive support, motivation psycho education provided. ICD Code: F32.9 Assessment & Plan Estimated LOS: Stevie Herrera MD December 27, 2016 15:23
--- NOTE | 2016-12-27 15:36 | EKG ---
Date Performed: 12/27/2016 Time Performed: 08:34:48 PTAGE: 41 years EKG: SINUS TACHYCARDIA WITH SHORT NC INTERVAL LEFT ANTERIOR FASCICULAR BLOCK Compared to prior t racing no significant change ABNORMAL ECG PREVIOUS TRACING : 12/27/2016 00.33 DOCTOR: Skylar Colindres Interpretating Date/Time 12/27/2016 15:34:22
--- NOTE | 2016-12-27 15:36 | EKG ---
Date Performed: 12/27/2016 Time Performed: 11:14:13 PTAGE: 41 years EKG: Sinus rhythm WITH SHORT IA INTERVAL LEFT ANTERIOR FASCICULAR BLOCK Compared to prior tracing no significant celis e ABNORMAL ECG PREVIOUS TRACING : 12/27/2016 08.34 DOCTOR: Skylar Colindres Interpretating Date/Time 12/27/2016 15:34:31
[2016-12-27 16:22] LABS: HEMOGLOBIN A1a 1.2 %; HEMOGLOBIN A1b 0.9 %; HEMOGLOBIN Ao 85.3 %; HEMOGLOBIN F 0.9 %; HEMOGLOBIN LA1C 2.2 %; HEMOGLOBIN P3 3.7 %
[2016-12-27] MEDS: GABAPENTIN 400 MG CAP PO SCH (18:14)
--- NOTE | 2016-12-27 21:20 | MB ---
cc: SANDHYA BURRELL MD DATE OF CONSULTATION: 12/27/2016 REASON FOR CONSULTATION: Chest pain HISTORY OF PRESENT ILLNESS Ms. Stewart is a 41-year-old female who does have a history of depression, anxiety, cocaine and alcohol use disorder. She presented to the hospital with chest pain. The patient is somewhat of a poor historian. She indicates that she has been having intermittent episodes of chest discomfort. She has two types of pain. One is tenderness to palpation. The other one she had difficulty describing. She then explained that it was palpitations like her heart racing. There was no radiation. This has been worse recently. The patient has had nausea, vomiting and diarrhea for the last 4 days. She has also had recent cocaine use. PAST MEDICAL HISTORY Significant for sinusitis, allergies, renal calculi, cervical cancer. The patient denies any history to me of hypertension, hyperlipidemia or diabetes. SOCIAL HISTORY The patient does smoke. ALLERGIES LABETALOL, REGLAN, ULTRAM AND COMPAZINE PHYSICAL EXAMINATION: On physical examination vital signs are 98.2, 112, 20, 127/84. General: She is well appearing female who is in no apparent distress. Neck: Her neck is free from JVD. Lungs are clear to auscultation. Cardiovascular examination: She does have a reproducible chest pain to palpation over the center of her chest. She has a normal S1-S2 and is mildly tachycardiac. No rubs or gallops appreciated. Abdomen: Soft. Extremities: Free from edema. LABORATORY VALUES: Potassium of 3.1. Her serial troponins are less than 0.02, less than 0.02. EKG: Sinus tachycardia with a short MA interval. IMPRESSION: Atypical chest pain. The patient does have a smoking history and potentially a history of hypertension. Her blood pressure has remained stable off of meds thus far. Her heart rate has been a bit tachycardiac and is as high as 132 here. This is consistent with what she subsequently describes as her palpitations. This is likely related to her multiple metabolic derangement which includes hypokalemia. She, as well, appears a bit dehydrated. At this point I would not pursue any further evaluation as her one chest pain is reproducible on exam and related to musculoskeletal etiology. Her other "chest pain" is actually palpitations/tachycardia. Thus, at this point I would not pursue an ischemia workup. Tachycardia - the patient is being treated by the primary team with IV fluids and repleting her electrolytes. Depression - this is being managed by psychiatry. Disposition - I do believe it is reasonable for her to be transferred to the psychiatric unit once she is otherwise medically stable. I will be available on a p.r.n. basis. Hillary Hooks/SCOTT /5:32 PM /9:03 PM
[2016-12-27] MEDS: MIRTAZAPINE 15 MG TAB PO SCH (22:22)
[2016-12-28] VITALS (8 sets, daily range): BP systolic 121–137; BP diastolic 78–98; PULSE 76–106; RESP 18–22; TEMP 97.3–99.7; O2SAT 95–99
[2016-12-28] MEDS: SODIUM CHLOR 0.9% 1000 ML INJ 1,000 ML IV SCH ×3 (01:53→20:13)
[2016-12-28] MEDS: metroNIDAZOLE 500 MG TAB PO SCH ×4 (05:26→23:37)
[2016-12-28] MEDS: PANTOPRAZOLE SOD 40 MG DELAYED RELEASE TAB PO SCH (05:26)
[2016-12-28] MEDS: ONDANSETRON HCL 4 MG/2 ML VIAL IVP PRN ×2 (05:26→15:31)
[2016-12-28] MEDS: LORazepam 2 MG/ML VIAL IV PUSH PRN (05:27)
[2016-12-28] MEDS: ENOXAPARIN SODIUM 40 MG/0.4 ML SYRINGE SQ SCH (05:27)
[2016-12-28 08:22] LABS: BASOPHIL # 0.1 TH/MM3 (0-0.2); BASOPHIL % 0.9 % (0.0-2.0); EOSINOPHIL # 0.8 TH/MM3 (0-0.4); EOSINOPHIL % 8.1 % (0.0-4.0); HEMATOCRIT 38.3 % (35.0-46.0); HEMO FLAGS DIFF FINAL; LYMPH % 34.3 % (9.0-44.0); LYMPHOCYTE # 3.5 TH/MM3 (1.0-4.8); MEAN CELL VOLUME 89.1 FL (80.0-100.0); MEAN CORPUSCULAR HGB CONC 34.8 % (32.0-36.0); MONO % 7.1 % (0.0-8.0); NEUT % 49.6 % (16.0-70.0); PLATELET COUNT 243 TH/MM3 (150-450); RED CELL DISTRIBUTION WIDTH 14.1 % (11.6-17.2); WHITE BLOOD COUNT 10.1 TH/MM3 (4.0-11.0)
[2016-12-28 08:50] LABS: BICARBONATE 23.2 MEQ/L (21.0-32.0); POTASSIUM 3.5 MEQ/L (3.5-5.1)
[2016-12-28] MEDS: SODIUM CHLORIDE 0.9% FLUSH 10 ML FLUSH IV FLUSH SCH ×2 (09:58→20:15)
[2016-12-28] MEDS: GABAPENTIN 400 MG CAP PO SCH ×3 (09:59→17:53)
[2016-12-28] MEDS: LORazepam 2 MG TAB PO PRN ×3 (10:09→23:37)
--- NOTE | 2016-12-28 11:43 | HHI.PR ---
Subjective Remarks Resting in the bed More alert and talkative today Still has hunger but unable to eat well due to nausea vomiting Low-grade fever Encouraged to be out of bed (Layne Esquivel) Objective Objective Results - Vital Signs Date Time Temp Pulse Resp B/P Pulse Ox O2 Delivery O2 Flow Rate FiO2 12/28/16 09:11 98 21 12/28/16 08:42 98.1 101 18 137/98 99 12/28/16 04:00 98.0 98 18 136/83 99 12/28/16 00:00 97.3 96 20 135/78 98 12/27/16 20:00 98.0 98 18 136/83 99 12/27/16 16:32 99.2 112 20 127/84 98 12/27/16 12:41 99.5 100 20 119/69 97 I/O 12/27/16 12/27/16 12/27/16 12/28/16 12/28/16 12/28/16 07:00 15:00 23:00 07:00 15:00 23:00 Intake Total 1420 ml 540 ml Balance 1420 ml 540 ml Intake Oral 480 ml 540 ml IV Total 940 ml # Voids 1 3 4 # Bowel Movements 1 1 (Layne Esquivel) Result Diagram: 12/28/1671412/28/16714 ROS General: Weakness (generalized), Other (12 point ROS done positives noted otherwise systems negative or unremarkable) Cardiac: Chest Pain (approved today) GI: Abdominal Pain, BM (diarrhea continues, positive for C. difficile) Neuro/MS: Tremors (occasional), Other (anxiety, feels some panic attacks possibly,) (Layne Esquivel) Physical Exam Physical Exam PHYSICAL EXAMINATION GENERAL: This is a slim female resting in the bed more alert and more talkative today. HEAD: Normocephalic without any lesion or mass noted. Facial features appear symmetric. OROPHARYNGEAL: Oropharynx without erythema or edema. NECK: Supple. No nuchal rigidity or lymphadenopathy. Trachea midline without deviation. CARDIAC: Regular rhythm, regular rate, S1 and S2 are heard. Murmur LUNGS: Clear to auscultation bilaterally. ABDOMEN: Soft, mild tenderness, loose diarrhea stools continue EXTREMITIES: no edema. Pulses equal bilateral. NEUROLOGICAL: Patient mood and affect are and some mild anxiety. Speech is clear patient is more talkative but doesn't feel like she can go home SKIN:Warm and moist Objective Remarks I need to stay in the hospital I can go home yet I'm not ready (Layne Esquivel) A/P Assessment and Plan 1. Chest pain. Rule out cardiac event or coronary artery Appreciate cardiology input. Feels her chest pain is atypical and not related to coronary artery disease at this time. No ischemia workup needed disease. 2. Hypokalemia. Resolved but still low at 3.5. Patient continues with positive C. difficile and diarrhea. Will add daily dose of potassium for now but when diarrhea is completely patient should be able to come off of it. 3. Acute kidney insufficiency, will recheck her labs in the morning Possibly secondary to some dehydration, improving 4. Anxiety and depression with suicidal ideation. Continue [place]iv[place] act Requiring one on one observation, appreciate psyche input, will stabilize from a medical perspective and hopefully patient can transition to psych area for further aggressive care. She is more talkative today but feels like she is not ready to go home 5. Diarrhea Patient is positive for C. difficile, very well could be likely to her generalized debility, patient's currently on Flagyl by mouth, diarrhea still continues, with some mild abdominal pain. Still has some nausea and vomiting. Encourage patient to graze through her meals, and consider the brat diet she agrees. Encouraged to continue to take by mouth fluids as much as possible loss of the diarrhea. 6. Polysubstance abuse with probable withdrawal symptoms Protocol which seems to be helping with her generalized anxiety. Patient would like to have her Klonopin back that she uses on an outpatient basis states that that really helps her stay calm. We'll discuss these options with Dr. Escobar since she is on an Ativan protocol for now. SCDs, PPI Discussed with patient Discussed with nurse Discussed with Dr. Escobar, seen on his behalf (Layne Esquivel) Assessment and Plan pt seen and examined with sitter at bedside labs reviewed [facility] help dw pt kartik singletonp about plan of care (Sena Escobar MD) Layne Esquivel December 28, 2016 11:43 Sena Escobar MD December 28, 2016 13:01
[2016-12-28] MEDS: POTASSIUM CHLORIDE 20 MEQ CONTROLLED RELEASE TAB PO SCH (12:04)
[2016-12-28] MEDS: LORazepam 1 MG TAB PO PRN (15:31)
[2016-12-28] MEDS: MIRTAZAPINE 15 MG TAB PO SCH (20:12)
[2016-12-28] MEDS: IBUPROFEN 400 MG TAB PO PRN (20:17)
[2016-12-28] MEDS: ZOLPIDEM TARTRATE 10 MG TAB PO PRN (23:40)
[2016-12-29] VITALS (8 sets, daily range): BP systolic 118–141; BP diastolic 77–90; PULSE 78–116; RESP 17–22; TEMP 97–98.8; O2SAT 88–100
[2016-12-29] MEDS: ENOXAPARIN SODIUM 40 MG/0.4 ML SYRINGE SQ SCH (05:32)
[2016-12-29] MEDS: PANTOPRAZOLE SOD 40 MG DELAYED RELEASE TAB PO SCH (05:32)
[2016-12-29] MEDS: SODIUM CHLOR 0.9% 1000 ML INJ 1,000 ML IV SCH (05:32)
[2016-12-29] MEDS: metroNIDAZOLE 500 MG TAB PO SCH ×4 (05:32→23:24)
[2016-12-29] MEDS: ONDANSETRON HCL 4 MG/2 ML VIAL IVP PRN ×3 (06:23→18:10)
[2016-12-29] MEDS: LORazepam 2 MG TAB PO PRN ×2 (06:23→11:54)
[2016-12-29 07:55] LABS: ALKALINE PHOSPHATASE 85 U/L (45-117); ALT (GPT) 36 U/L (10-53); ANION GAP 9 MEQ/L (5-15); AST (GOT) 34 U/L (15-37); BICARBONATE 25.9 MEQ/L (21.0-32.0); BLOOD UREA NITROGEN 17 MG/DL (7-18); CHLORIDE 105 MEQ/L (98-107); GLOMERULAR FILTRATION RATE 111 ML/MIN (>89); POTASSIUM 3.6 MEQ/L (3.5-5.1); SODIUM (NA) 140 MEQ/L (136-145); TOTAL BILIRUBIN ADULT 0.4 MG/DL (0.2-1.0)
[2016-12-29] MEDS: SODIUM CHLORIDE 0.9% FLUSH 10 ML FLUSH IV FLUSH SCH ×2 (09:03→20:43)
[2016-12-29] MEDS: POTASSIUM CHLORIDE 20 MEQ CONTROLLED RELEASE TAB PO SCH (09:03)
[2016-12-29] MEDS: GABAPENTIN 400 MG CAP PO SCH ×3 (09:04→17:37)
[2016-12-29] MEDS: NICOTINE 7 MG/24 HR PATCH T-DERMAL SCH (11:54)
--- NOTE | 2016-12-29 12:37 | HHI.PR ---
Subjective Subjective Remarks examined in front of sitter n/v after breakfast, now eating a breakfast sandwich tolerating okay c/o headache, migraine like, light bothers her takes Fioricet at home Ibuprofen not working anxious bm more formed now, x 3 today states she wants to go home, explained that she is under [place] Act and needs to be seen by psychiatrist threatened to call "clerical production worker", "this is illegal" Review of Systems Constitutional Constitutional Remarks 12 point ROS completed, unreliable Vitals/Results Intake & Output 12/28/16 12/28/16 12/29/16 15:00 23:00 07:00 Intake Total 840 ml 1400 ml Balance 840 ml 1400 ml Intake Oral 840 ml IV Total 1400 ml # Voids 5 3 4 # Bowel Movements 8 Vital Signs Vital Signs Date Time Temp Pulse Resp B/P Pulse Ox O2 Delivery O2 Flow Rate FiO2 12/29/16 11:00 88 12/29/16 08:40 98.0 78 20 130/89 98 12/29/16 04:00 98.8 96 20 120/90 88 12/29/16 00:00 98.2 116 22 118/77 98 12/28/16 21:17 20 12/28/16 20:00 98.4 83 22 121/86 97 12/28/16 20:00 106 12/28/16 16:44 98.4 93 18 127/82 95 12/28/16 14:16 76 12/28/16 13:04 99.7 87 18 133/80 98 CBC/BMP: 12/28/16 0715 12/29/16 0650 Lab Results Laboratory Tests Test 12/29/16 06:50 Sodium Level 140 MEQ/L Potassium Level 3.6 MEQ/L Chloride Level 105 MEQ/L Carbon Dioxide Level 25.9 MEQ/L Anion Gap 9 MEQ/L Blood Urea Nitrogen 17 MG/DL Creatinine 0.59 MG/DL Estimat Glomerular Filtration 111 ML/MIN Rate Random Glucose 103 MG/DL Calcium Level 7.7 MG/DL Total Bilirubin 0.4 MG/DL Aspartate Amino Transf 34 U/L (AST/SGOT) Alanine Aminotransferase 36 U/L (ALT/SGPT) Alkaline Phosphatase 85 U/L Total Protein 5.5 GM/DL Albumin 2.9 GM/DL Physical Exam General General Appearance: Well Developed, Well Nourished, Comfortable, Anxious Eyes Eye Exam: Pupils Equal, Pupils Reactive Ears & Nose Ears & Nose Exam: Nasal Mucosa [place] Throat Throat Exam: Oral Mucosa [place] & Moist Neck Neck Exam: Neck Supple, Trachea Midline Pulmonary Resp Exam: Clear Bilaterally, No Distress Cardiology CV Exam: Regular, Good Perfusion Gastrointestinal/Abdomen GI Exam: Soft, Non-Tender, Bowel Sounds Present, Non-Distended Musculoskeletal MS Exam: Joints Intact Integumentary Skin Exam: Warm, Dry Extremeties Extremities Exam: No Edema, Pedal Pulses Palpable Neurologic Neuro Exam: Alert, Awake, Oriented, Speech Clear, Moving All Extremities, No Focal Deficits VTE Prophylaxis VTE Prophylaxis Meds: Lovenox PUD Prophylasis PUD Prophylaxis: Protonix Assessment/Plan Problem List: (1) Chest pain (2) Migraine headache (3) Clostridium difficile diarrhea (4) Suicidal ideation (5) Hypokalemia (6) Tobacco dependence (7) Anxiety (8) Depression Assessment/Plan 1. Chest pain. Rule out cardiac event or coronary artery Appreciate cardiology input. Feels her chest pain is atypical and not related to coronary artery disease at this time. No ischemia workup needed stable, denies any CP 2. Hypokalemia. Resolved, now 3.6. Replace PRN. Patient continues with positive C. difficile and diarrhea, although improving. 3. Acute kidney insufficiency-resolving continue IVF 4. Anxiety and depression with suicidal ideation. Continue Givens act. Sitter at d Psych following Needs one more day, then can poss. transfer to psych if recommended. Pt. 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 5. Diarrhea Patient is positive for C. difficile, continue with Flagyl by mouth Stools forming, improving N/V today, improving, continue antiemetics PRN 6. Polysubstance abuse with probable withdrawal symptoms CIWA protocol. Anxious at times, may need to restart Klonopin Tobacco abuse, start Nicotine patch. May help with anxiety 7. Headache, hx migraines anxious, continue Ibuprofen PRN Was taking Fioricet at home, may need to restart Lovenox/SCDs for DVT prophylaxis PPI for GI prophylaxis Poss. dc or transfer to psych in am Dr. Jose Enrique quiñones this afternoon Discussed with patient Discussed with nurse Discussed with Dr. Escobar This pt. seen by myself and Dr. Escobar, this note is written on his behalf. Problem Qualifiers (1) Chest pain: Qualified Code: R07.9 - Chest pain, unspecified type (2) Migraine headache: Qualified Code: G43.909 - Migraine without status migrainosus, not intractable , unspecified migraine type (3) Depression: Qualified Code: F32.9 - Depression, unspecified depression type Missy Belcher December 29, 2016 12:37
[2016-12-29] MEDS: LORazepam 1 MG TAB PO PRN ×2 (18:10→23:24)
[2016-12-29] MEDS: ZOLPIDEM TARTRATE 10 MG TAB PO PRN (20:43)
[2016-12-29] MEDS: MIRTAZAPINE 15 MG TAB PO SCH (20:43)
[2016-12-30] VITALS: BP 141/91; PULSE 108; RESP 20; TEMP 97.2; O2SAT 100
[2016-12-30] MEDS: SODIUM CHLOR 0.9% 1000 ML INJ 1,000 ML IV SCH ×2 (00:10→13:28)
[2016-12-30] MEDS: LORazepam 2 MG TAB PO PRN (01:39)
[2016-12-30 05:00] VITALS: BP 128/92; PULSE 99; RESP 19; TEMP 97.6; O2SAT 100
[2016-12-30] MEDS: ENOXAPARIN SODIUM 40 MG/0.4 ML SYRINGE SQ SCH (05:49)
[2016-12-30] MEDS: PANTOPRAZOLE SOD 40 MG DELAYED RELEASE TAB PO SCH (05:49)
[2016-12-30] MEDS: metroNIDAZOLE 500 MG TAB PO SCH ×2 (05:49→13:19)
[2016-12-30] MEDS: IBUPROFEN 400 MG TAB PO PRN (05:50)
[2016-12-30] MEDS: LORazepam 1 MG TAB PO PRN (05:52)
[2016-12-30 06:00] VITALS: BP 130/94; PULSE 92; RESP 21; TEMP 97.2; O2SAT 100
[2016-12-30] MEDS: ONDANSETRON HCL 4 MG/2 ML VIAL IVP PRN (06:11)
[2016-12-30 08:48] VITALS: BP 119/83; PULSE 76; RESP 20; TEMP 97.7; O2SAT 99
[2016-12-30] MEDS ORDERED: REMOVE OLD PATCH T-DERMAL SCH (09:00)
[2016-12-30] MEDS: SODIUM CHLORIDE 0.9% FLUSH 10 ML FLUSH IV FLUSH SCH (09:08)
[2016-12-30] MEDS: POTASSIUM CHLORIDE 20 MEQ CONTROLLED RELEASE TAB PO SCH (09:14)
[2016-12-30] MEDS: GABAPENTIN 400 MG CAP PO SCH ×2 (09:14→13:19)
[2016-12-30] MEDS: NICOTINE 7 MG/24 HR PATCH T-DERMAL SCH (09:16)
[2016-12-30] MEDS: LORazepam 2 MG/ML VIAL IV PUSH PRN (09:47)
[2016-12-30] MEDS ORDERED: METR-1 PO (12:04)
[2016-12-30] MEDS ORDERED: MIRTA15 PO (12:04)
--- NOTE | 2016-12-30 12:05 | HHI.DCPOC ---
Discharge Care Plan Diagnosis: (1) Nausea (2) Tobacco dependence (3) Suicidal ideation (4) Migraine headache (5) Clostridium difficile diarrhea Your Health Problems Are: Anxiety Irregular Bowel Function Goals to Promote Your Health * To prevent worsening of your condition and complications * To maintain your health at the optimal level Directions to Meet Your Goals Take your medications as prescribed Follow your dietary instruction Follow activity as directed Keep your appointments as scheduled Take your immunizations and boosters as scheduled If your symptoms worsen call your PCP, if no PCP go to Urgent Care Center or Emergency Room Smoking is Dangerous to Your Health. Avoid second hand smoke Call the 24-hour hour crisis hotline for domestic abuse at Missy Belcher [facility] December 30, 2016 12:05
[2016-12-30] MEDS ORDERED: ACETAMIN 325 MG/BUTALBITAL 50 MG/CAFFEINE 40 MG TAB PO PRN (13:00)
[2016-12-30] MEDS ORDERED: HYDROCORTISONE ACETATE 25 MG SUPP RECTAL SCH (13:00)
--- NOTE | 2016-12-30 13:26 | HHI.DS ---
Discharge Summary Admission Date December 27, 2016 at 01:45 Discharge Date: December 30, 2016 Admitting Diagnosis (1) Chest pain (2) Anxiety (3) Depression (4) Migraine headache (5) Tobacco dependence (6) Suicidal ideation (7) Clostridium difficile diarrhea CBC/BMP: 12/28/16 0715 12/29/16 0650 Significant Findings Laboratory Tests Test 12/28/16 12/29/16 07:15 06:50 Eosinophils (%) (Auto) 8.1 % (0.0-4.0) Eosinophils # (Auto) 0.8 TH/MM3 (0-0.4) Calcium Level 7.7 MG/DL 7.7 MG/DL (8.5-10.1) (8.5-10.1) Total Protein 5.5 GM/DL (6.4-8.2) Albumin 2.9 GM/DL (3.4-5.0) Imaging Last Impressions Chest X-Ray 12/27/16 0203 Signed Impressions: Service Date/Time: Tuesday, December 27, 2016 06:05 - CONCLUSION: No acute disease. Stefano Rubi Jr., MD Hospital Course This is a 41 year old female patient with a past medical history which includes recurrent sinusitis, seasonal allergies, hypertension, kidney stones, fibromyalgia, cervical cancer, migraine headaches, anxiety/depression and polysubstance abuse. Patient was a poor historian information gathered from patient as well as prior charting. Per ER documentation, "this patient is brought in by her . She has been depressed long-term but more recently feeling suicidal. She had a tentative plan where she would try to cut herself with a knife but did not act on it. Has been drinking alcohol but denies any drug use. No overdose or pill use today. Symptoms severity is moderate to severe. No alleviating factors. Duration 2 days. She got out of drug rehabilitation 8 days ago, but signed herself out and did not complete the program. She denies any specific physical complaint. She is here seeking psychiatric help." We were called by psychiatric attending to see the patient for chest pain, hypokalemia, concerns for ETOH withdraw and requested us transfer to medical floor. Patient reported that she has been having intermitted left sided chest pain since 12/26/2016 AM. Patient described the pain as burning and feels as though something is stuck in her chest. Chest pain did radiate to the left side of her neck and was associated with nausea. Chest pain last for approximally 5 secs and resolves spontaneously then starts again. Patient was not sure what makes the pain better, but reported worsened by anxiety. Patient denied history of CAD. Patient did report that she had gotten similar chest pain before when she gets anxious. Chest pain was reproducible with palpation. Patient also reported diarrhea x 2 days described as constant watery stools- denies black or red blood present. Associated with abdominal gas and cramping. Patient did report last using cocaine 1 week ago and was recently treated in a detox/recovery center for drugs and alcohol. Pt. evaluated in the ED and admitted: (1) Chest pain (2) Migraine headache (3) Clostridium difficile diarrhea (4) Suicidal ideation (5) Hypokalemia (6) Tobacco dependence (7) Anxiety (8) Depression This is a 41 year old female patient with a past medical history which includes recurrent sinusitis, seasonal allergies, hypertension, kidney stones, fibromyalgia, cervical cancer, migraine headaches, anxiety/depression and polysubstance abuse. Per ER documentation, "this patient is brought in by her . She is been depressed long-term but more recently feeling suicidal. She had a tentative plan where she would try to cut herself with a knife but did not act on it. Hospitalist called by psychiatric attending to see the patient for chest pain, hypokalemia, concerns for ETOH withdraw and requested us transfer to medical floor. 1. Chest pain. Rule out cardiac event or coronary artery Cardiology consulted, cardiac enzymes x 3 negative. Appreciate cardiology input. Frederica her chest pain is atypical and not related to coronary artery disease at this time. No ischemia workup needed stable, denieds any CP 2. Hypokalemia. Electrolytes replaced. Resolved, now 3.6. Replaced PRN. Patient continues with positive C. difficile and diarrhea, although improving. 3. Acute kidney insufficiency-resolving Put on IVF, BMP monitored. 4. Anxiety and depression with suicidal ideation. Continued Givens act. [facility] following Recommended inpatient psych. Meds adjusted. Pt. agreeable with psych care. 5. Diarrhea Patient was positive for C. difficile, continued with Flagyl by mouth Stools forming, improving. Had N/V, improved, antiemetics PRN 6. Polysubstance abuse with probable withdrawal symptoms CIWA protocol done. Anxious at times Tobacco abuse, started Nicotine patch. Helped to decrease anxiety 7. Headache, hx migraines anxious, continued Ibuprofen PRN Given fioricet, headache improved Lovenox/SCDs for DVT prophylaxis PPI for GI prophylaxis Stable for dc, stools formed added Anusol supp for c/o hemorrhoids. Discharged to psych in stable condition. diet -heart healthy Activity-as tolerated Pt Condition on Discharge: Stable Discharge Disposition: Disc to Psych Care Fac Discharge Instructions DIET: Follow Instructions for: Heart Healthy Diet Activities you can perform: Weight Bearing as Angel Follow up Referrals: PCP Follow-up New Medications: Metronidazole (Flagyl) 500 Mg Tab 500 MG PO Q6HR Diarrhea #28 Ref 0 TAB Mirtazapine (Mirtazapine) 15 Mg Tab 15 MG PO HS Depression Control #30 Ref 0 TAB Continued Medications: Vqbgwybgwp-Zdtckag-Sdorihyp (Fiorinal) 50-325-40 Mg Cap 1 CAP PO Q6HR Do not exceed 6 capsules/day. Migraines Ref 0 CAP Folic Acid (Folate) 1 Mg Tab 1 MG PO DAILY Nutritional Supplement Ref 0 TAB Gabapentin (Gabapentin) 800 Mg Tab 800 MG PO TID #90 Ref 0 TAB Multiple Vitamins W/ Minerals (Multivitamin Adults) 1 Tab 1 TAB PO DAILY Nutritional Supplement Ref 0 TAB Ondansetron Odt (Ondansetron Odt) 4 Mg Tab 4 MG SL Q6HR PRN Nausea/Vomiting Ref 0 TAB Propranolol (Propranolol) 20 Mg Tab 20 MG PO TID #90 Ref 0 TAB Discontinued Medications: Clonazepam (Clonazepam) 2 Mg Tab 2 MG PO TID #90 Ref 0 TAB Magnesium Oxide (Magnesium Oxide) 400 Mg Tab 1 TAB PO DAILY Sumatriptan Nasal [place] (Sumatriptan Nasal [place]) 20 Mg/Act [place] 1 SPRAY NASAL ONCE [place] in one nostril. If headache has not resolved within 2 hours or returns, the dose may be repeated once after 2 hours MIGRAINE HEADACHE #1 Ref 0 BOTTLE Zolpidem (Zolpidem) 10 Mg Tab 10 MG PO HS PRN INSOMNIA Ref 0 TAB Missy Belcher December 30, 2016 13:26
[2016-12-30] MEDS ORDERED: Hydrocortisone Supp RECTAL (13:31)
--- NOTE | 2016-12-30 16:08 | HHI.PR ---
Subjective Subjective Remarks examined in front of sitter smiling, pleasant, still has headache, has N/V formed stools now eating okay c/o rectal pain, from stools, feels "bumps" agreeable with going to psych Review of Systems Constitutional Constitutional Remarks 12 point ROS completed, unreliable Vitals/Results Intake & Output 12/29/16 12/29/16 12/30/16 15:00 23:00 07:00 Intake Total 1080 ml 900 ml 1000 ml Balance 1080 ml 900 ml 1000 ml Intake Oral 1080 ml 900 ml 1000 ml # Voids 12 3 4 # Bowel Movements 10 0 0 Vital Signs Vital Signs Date Time Temp Pulse Resp B/P Pulse Ox O2 Delivery O2 Flow Rate FiO2 12/30/16 08:48 97.7 76 20 119/83 99 12/30/16 06:00 97.2 92 21 130/94 100 12/30/16 05:00 97.6 99 19 128/92 100 12/30/16 00:00 97.2 108 20 141/91 100 12/29/16 20:45 97.6 88 17 133/84 100 12/29/16 20:00 95 CBC/BMP: 12/28/16 0715 12/29/16 0650 Physical Exam General General Appearance: Well Developed, Well Nourished, Comfortable Eyes Eye Exam: Pupils Equal, Pupils Reactive Ears & Nose Ears & Nose Exam: Nasal Mucosa [place] Throat Throat Exam: Oral Mucosa [place] & Moist Neck Neck Exam: Neck Supple, Trachea Midline Pulmonary Resp Exam: Clear Bilaterally, No Distress Cardiology CV Exam: Regular, Good Perfusion Gastrointestinal/Abdomen GI Exam: Soft, Non-Tender, Bowel Sounds Present, Non-Distended Musculoskeletal MS Exam: Joints Intact Integumentary Skin Exam: Warm, Dry Extremeties Extremities Exam: No Edema, Pedal Pulses Palpable Neurologic Neuro Exam: Alert, Awake, Oriented, Speech Clear, Moving All Extremities, No Focal Deficits VTE Prophylaxis VTE Prophylaxis Meds: Lovenox PUD Prophylasis PUD Prophylaxis: Protonix Assessment/Plan Problem List: (1) Chest pain (2) Migraine headache (3) Clostridium difficile diarrhea (4) Suicidal ideation (5) Hypokalemia (6) Tobacco dependence (7) Anxiety (8) Depression Assessment/Plan 1. Chest pain. Rule out cardiac event or coronary artery Appreciate cardiology input. Feels her chest pain is atypical and not related to coronary artery disease at this time. No ischemia workup needed stable, denies any CP 2. Hypokalemia. Resolved, now 3.6. Replace PRN. Patient continues with positive C. difficile and diarrhea, although improving. 3. Acute kidney insufficiency-resolving continue IVF 4. Anxiety and depression with suicidal ideation. Continue Givens act. [facility] Stable for dc, agreeable with going to psych 5. Diarrhea Patient is positive for C. difficile, continue with Flagyl by mouth Stools forming, improving N/V today, improving, continue antiemetics PRN 6. Polysubstance abuse with probable withdrawal symptoms [facility] protocol. Anxious at times, may need to restart Klonopin Tobacco abuse, continue Nicotine patch. May help with anxiety 7. Headache, hx migraines Fioricet prn added Lovenox/SCDs for DVT prophylaxis PPI for GI prophylaxis Stable for dc, stools formed add Anusol supp Discharge to psych diet -heart healthy Activit-as tolerated Discussed with patient Discussed with nurse Discussed with Dr. Escobar Discussed with CM This pt. seen by myself and Dr. Escobar, this note is written on his behalf. Problem Qualifiers (1) Chest pain: Qualified Code: R07.9 - Chest pain, unspecified type (2) Migraine headache: Qualified Code: G43.909 - Migraine without status migrainosus, not intractable , unspecified migraine type (3) Depression: Qualified Code: F32.9 - Depression, unspecified depression type Missy Belcher December 30, 2016 16:08
== END 2016-12-30 16:14 ==
LOC: N05B 01:45
PROVIDERS: ADMIT Specialist; ATTEND Specialist
DX: R07.89 Other chest pain (principal); R00.0 Tachycardia, unspecified; A04.7 Enterocolitis due to Clostridium difficile; G43.909 Migraine, unspecified, not intractable, without status migrainosus; F41.0 Panic disorder [episodic paroxysmal anxiety]; F17.200 Nicotine dependence, unspecified, uncomplicated; E87.6 Hypokalemia; N17.9 Acute kidney failure, unspecified; F31.9 Bipolar disorder, unspecified; R45.851 Suicidal ideations; F14.10 Cocaine abuse, uncomplicated; I10 Essential (primary) hypertension; Z86.73 Personal history of transient ischemic attack (TIA), and cerebral infarction without residual deficits; Z85.41 Personal history of malignant neoplasm of cervix uteri; Z85.43 Personal history of malignant neoplasm of ovary; Z88.5 Allergy status to narcotic agent; Z88.8 Allergy status to other drugs, medicaments and biological substances
CPT/HCPCS: 71010; 80048; 80053; 80061; 83036; 83735; 84484; 85025; 87493; 93005; G0378; J1650; J2060; J2405; J7030

== ENCOUNTER 2016-12-30 16:38 | Inpatient (IN) | payer BC ==
[~2016-12-30 16:38] MED LIST changes: -AMBI10TA PO; -CLON1TAB PO; +CLON2TAB PO; -FOLI1 PO; +FOLI1TAB4 PO; +GABA800T PO; +Hydrocortisone Supp RECTAL; +METR-1 PO; +MIRTA15 PO; +MULT1TAB84 PO; -NEUR600T PO; +ONDA4TAB7 SL; -PROP10TA26 PO; +PROP20TA3 PO; -SERT100 PO; -SUMA20I NASAL; +SUMA20SP NASAL; -TAB-TAB PO; -ZOFR4TAB3 SL; +ZOLP10TA3 PO
[2016-12-30] MEDS ORDERED: ALUMINUM/MAGNESIUM/SIMETH 30 ML CUP PO PRN (17:15)
[2016-12-30] MEDS ORDERED: MAGNESIUM HYDROXIDE SUSP 30 ML CUP PO PRN (17:15)
[2016-12-30] MEDS ORDERED: LORazepam 2 MG/ML VIAL IM PRN (17:15)
[2016-12-30] MEDS ORDERED: ACETAMINOPHEN 325 MG TAB PO PRN (17:15)
[2016-12-30 18:11] VITALS: BP 131/91; PULSE 87; RESP 16; TEMP 97.8; O2SAT 98
[2016-12-30] MEDS: LORazepam 1 MG TAB PO PRN (19:36)
[2016-12-30] MEDS ORDERED: REMOVE OLD NICOTINE PATCH T-DERMAL SCH (21:00)
[2016-12-31] MEDS: LORazepam 1 MG TAB PO PRN (05:22)
[2016-12-31 05:23] VITALS: BP 115/83; PULSE 85; RESP 17; TEMP 97.2; O2SAT 98
[2016-12-31] MEDS ORDERED: NICOTINE 21 MG/24 HR PATCH T-DERMAL SCH (09:00)
--- NOTE | 2016-12-31 11:00 | HHI.DS ---
Psychiatry Discharge Summary Inpatient Psychiatric care?: Yes Advance Directive: No Reason Not Provided: Due to Patient Condition Mental Health AdvanceDirective: No Health Care Proxy: No Admission Admission Date December 30, 2016 at 16:38 Admission Diagnosis: (1) Alcohol intoxication ICD Code: F10.929 (2) Major depressive disorder, recurrent severe without psychotic features ICD Code: F33.2 Brief History Please see psychiatric evaluation inadvertently dictated under Tobacco Use In Past 30 Days: 5 or More Cigarettes/Day Alcohol Use: Never Hospital Course See above brief history no for details. At this time patient does not meet criteria for acute inpatient psychiatric hospitalization will lift Givens act allow patient to be discharged to her family there be no Rx by me she may continue her schedule meds per Dr. Cabrera hamilton. She should also follow-up with the [facility] related to her C. difficile issues Results Blood Pressure 115 / 83 Vital Signs Date Time Temp Pulse Resp B/P Pulse Ox O2 Delivery O2 Flow Rate FiO2 12/31/16 05:23 97.2 85 17 115/83 98 Seen medical admit [id number] Summary of Procedures None done Pending results at discharge: No Medications # of Antipsychotic meds at D/C: 0 Approp Antipsych med options 1 - Minimum of three failed multiple trials of monotherapy. 2 - Documented plan to taper to monotherapy due to previous use of multiple meds OR cross-taper in progress at D/C. 3 - Documentation of augmentation of Clozapine. 4 - Justification other than those listed in allowable values 1-3, document here : Discharge Discharge Date: December 31, 2016 Discharge Diagnosis: (1) Alcohol intoxication Diagnosis: Secondary ICD Code: F10.929 (2) Major depressive disorder, recurrent severe without psychotic features Diagnosis: Principal ICD Code: F33.2 Mental Status Exam at Disch Alert oriented thin slender somewhat disheveled white female she has normal active, patient euthymic with mild dysphoria affect shows slight decrease range of motion intensity, speech rate and rhythm within normal limits though no formal thought disorders. No auditory or visual hallucinations. No delusions. Insight and judgment poor. Cognition grossly intact Pt Condition on Discharge: Stable Discharge Disposition: Discharge Home Discharge Instructions Diet Instructions: As Tolerated, No Restrictions Activities you can perform: Regular-No Restrictions Scheduled Appointment: follow-up [facility], follow-up Dr. Cabrera hamilton Discharge Time > 30 minutes Discharge/Advance Care Plan Health Problems: (1) Major depressive disorder, recurrent severe without psychotic features (2) Alcohol intoxication (3) Clostridium difficile diarrhea Goals to promote your health * To prevent worsening of your condition and complications * To maintain your health at the optimal level Directions to meet your goals Take your medications as prescribed Follow your dietary instruction Follow activity as directed Keep your appointments as scheduled Take your immunizations and boosters as scheduled If your symptoms worsen call your PCP, if no PCP go to Urgent Care Center or Emergency Room For 13/03 questions related to your inpatient stay or results of tests pending at discharge, please contact Dr. James Hoskins at Smoking is Dangerous to Your Health. Avoid second hand smoking James Hoskins MD December 31, 2016 11:00
[2017-01-01 10:26] LABS: HEMOGLOBIN A1a 1.1 %; HEMOGLOBIN A1b 0.9 %; HEMOGLOBIN F 0.8 %; HEMOGLOBIN LA1C 1.9 %; HEMOGLOBIN P3 4.9 %
== END 2016-12-31 12:25 | disposition home or self-care (01) | DRG 885 ==
LOC: H260 16:38
PROVIDERS: ADMIT Psychiatry & Neurology Psychiatry; ATTEND Psychiatry & Neurology Psychiatry
DX: F33.2 Major depressive disorder, recurrent severe without psychotic features (principal); A04.7 Enterocolitis due to Clostridium difficile; F10.129 Alcohol abuse with intoxication, unspecified; Z72.0 Tobacco use
CPT/HCPCS: 83036

== ENCOUNTER 2017-03-26 17:43 | Emergency (ER) | payer BC, OTHER ==
[~2017-03-26] VITALS: Ht 160 cm; Wt 56.5 kg
[~2017-03-26 17:43] MED LIST changes: -CLON2TAB PO; -MAGN400T PO; -SUMA20SP NASAL; -ZOLP10TA3 PO
[2017-03-26 17:48] VITALS: BP 119/56; PULSE 79; RESP 16; TEMP 98.1; O2SAT 93
--- NOTE | 2017-03-26 18:18 | PD ---
HPI Chief Complaint: Headache Time Seen by Provider: 18:02 Travel History International Travel<30 days: No Contact w/Intl Traveler<30days: No Traveled to known affect area: No History of Present Illness HPI HAS CHRONIC H/O MIGRAINES, FOR WHICH SHE IS ON SUMATRIPTAN, HOWEVER THAT HAS NOT HELPED HER PAIN MUCH, AND SHE PRESENTS WITH TYPICAL MIGRAINE SYMPTOMS AND LEVEL OF 7/10, GENERALIZED IN LOCATION PFSH Past Medical History Hx Anticoagulant Therapy: No Arthritis: No Blood Disorders: No Bipolar Disorder: Yes Anxiety: Yes Depression: Yes Heart Rhythm Problems: Yes ("LOW HEART RATE") Cancer: No Cardiovascular Problems: Yes High Cholesterol: No Chemotherapy: No Chest Pain: No Congestive Heart Failure: No Cerebrovascular Accident: Yes (stroke) Diabetes: No Diminished Hearing: No Endocrine: No Gastrointestinal Disorders: Yes (NAUSEA R/T MIGRAINES) GERD: Yes Genitourinary: Yes Headaches: Yes Hepatitis: No Hiatal Hernia: No Hypertension: No Immune Disorder: No Implanted Vascular Access Dvce: Yes Kidney Stones: Yes Musculoskeletal: Yes Neurologic: Yes Psychiatric: Yes Reproductive: No Respiratory: No Immunizations Current: Yes Migraines: Yes Myocardial Infarction: Yes Radiation Therapy: No Seizures: Yes (DURING R/T ECLAMPSIA) Thyroid Disease: No Ulcer: No ?: Not LMP: 03/26/17 : 5 Para: 4 : 1 Tubal Ligation: Yes Past Surgical History Abdominal Surgery: No AICD: No Appendectomy: Yes Arteriovenous Shunt: No Body Medical Devices: BREAST AUGMENTATION, SCREWS IN CERVICAL Cardiac Surgery: No Ear Surgery: No Endocrine Surgery: No Eye Surgery: No Genitourinary Surgery: No Gynecologic Surgery: No Hysterectomy: No Insulin Pump: No Joint Replacement: No Neurologic Surgery: Yes (BRAIN SWELLING ETILOGY UNKNOWN in 2014/ C5, C6 REPAIR) Oral Surgery: No Pacemaker: No Thoracic Surgery: No Other Surgery: Yes (BREAST AUGMENTATION) Social History Alcohol Use: Yes Tobacco Use: Yes Substance Use: Yes Allergies-Medications (Allergen,Severity, Reaction): Coded Allergies: Labetalol (Verified Allergy, Severe, DECREASED HEART RATE, 03/26/17) Reglan (Verified Allergy, Severe, Twitching, 03/26/17) Ultram (Verified Allergy, Severe, Seizures, 03/26/17) Compazine (Verified Allergy, Intermediate, Anaphylaxis, 03/26/17) Reported Meds & Prescriptions Reported Meds & Active Scripts Active Reported Multi-Vitamin Daily (Multiple Vitamin) 1 Tab Tab 1 Tab PO DAILY Ondansetron Odt 4 Mg Tab 4 Mg SL Q4HR PRN Fiorinal (Butalbital/Aspirin/Caffeine) 50-325-40 Mg Cap 1 Cap PO Q4HR Do not exceed 6 capsules/day. Gabapentin 800 Mg Tab 900 Mg PO TID Propranolol (Propranolol HCl) 20 Mg Tab 20 Mg PO BID Review of Systems Except as stated in HPI: all other systems reviewed are Neg HENT: Positive: Headaches Physical Exam Narrative GENERAL: SKIN: Warm and dry. HEAD: Atraumatic. Normocephalic. EYES: Pupils equal and round. No scleral icterus. No injection or drainage. ENT: No nasal bleeding or discharge. Mucous membranes pink and moist. NECK: Trachea midline. No JVD. CARDIOVASCULAR: Regular rate and rhythm. RESPIRATORY: No accessory muscle use. Clear to auscultation. Breath sounds equal bilaterally. GASTROINTESTINAL: Abdomen soft, non-tender, nondistended. MUSCULOSKELETAL: Extremities without clubbing, cyanosis, or edema. No obvious deformities. NEUROLOGICAL: Awake and alert. No obvious cranial nerve deficits. Motor grossly within normal limits. Five out of 5 muscle strength in the arms and legs. Normal speech. PSYCHIATRIC: Appropriate mood and affect; insight and judgment normal. Data Data Last Documented VS Vital Signs Date Time Temp Pulse Resp B/P Pulse Ox O2 Delivery O2 Flow Rate FiO2 03/26/17 17:54 79 93 03/26/17 17:48 98.1 16 119/56 Orders Hydromorphone Pf Inj (Dilaudid Pf Inj) (03/26/17 18:30) Ondansetron Odt (Zofran Odt) (03/26/17 18:30) [facility] Medical Decision Making Medical Screen Exam Complete: Yes Emergency Medical Condition: Yes Medical Record Reviewed: Yes Differential Diagnosis TENSION V MIGRAINE V BREAKTHGOURH PAIN Narrative Course PATIENT KNOWN TO HAVE CHRONIC LANDRUM, WILL REFILL MEDICATOINS AND PT WILL FOLLOW UP WITH PCP Diagnosis Primary Impression: ACUTE EXACERBATION OF CHRONIC HEADACHES/MIGRAINE Scripts Ondansetron Odt (Zofran Odt)4 Mg Tab4 Mg SL Q6HR PRN (Nausea/Vomiting) #12 TAB Prov:Vaughn Joya MD 03/26/17 Fwrifzzbid-Tlqtjrrsjmwgh-Pecdaxzb (Fioricet)50-300-40 Mg Cap1 Cap PO Q4H PRN ( HEADACHE) #20 CAP Prov:Vaughn Joya MD 03/26/17 Disposition: 01 DISCHARGE HOME Condition: Stable Vaughn Joya MD Mar 26, 2017 18:18
[2017-03-26] MEDS ORDERED: MULT-65 PO (18:24)
[2017-03-26] MEDS ORDERED: ONDANSETRON ODT 4 MG TAB PO ONE (18:30)
[2017-03-26] MEDS ORDERED: HYDROmorphone HCL PF 1 MG/ML VIAL IM ONE (18:30)
[2017-03-26] MEDS ORDERED: ZOFR4TAB3 SL (19:04)
[2017-03-26] MEDS ORDERED: BUTA1CAP PO (19:04)
[2017-03-26 19:24] VITALS: BP 142/67
== END 2017-03-26 19:27 | disposition home or self-care (01) ==
LOC: PHED 17:43
DX: G43.909 Migraine, unspecified, not intractable, without status migrainosus (principal); Z72.0 Tobacco use
CPT/HCPCS: 96372; 99284; J1170